=== PATIENT | male | born 1965 | race Caucasian/White ===

== ENCOUNTER 2016-10-20 06:12 | Emergency (ER) | payer OTHER ==
[~2016-10-20] VITALS: Ht 167.6 cm; Wt 95.3 kg
[~2016-10-20 06:12] MED LIST: ALBUTEROL0.09 MG/A1 INH; ANTIVERT/2525 MG PO; BACTRIM DS 8001 TA1 PO; BIAXIN FILMTAB500 MG PO; CLARITIN10 MG PO; COMBIVENT1 ARO IH; DOXYCYCLINE MO100 M1 PO; DUONEB 3 MG/3 ML3 M1 NEB; HUMALOG MIX SC; LEVAQUIN500 M1 PO; LEVAQUIN750 M1 PO; LEVOFLOXACIN500 MG PO; MEDROL DOSEPAK4 MG PO; METFORMIN1000 MG PO; MOTRIN800 MG PO; MUCINEX ER600 MG PO; Meclizine25 MG PO; NOVOLOG 70/30 M10 ML SC; PHENERGAN W/ DE30 ML PO; PREDNICOT10 MG PO; PREDNICOT20 MG PO; PREDNISONE10 MG PO; SYMBICORT1 AE1 INH; THEOPHYLLINE200 M3 PO; THEOPHYLLINE300 M2 PO; VICODIN 5/500 505 MG PO; ZANTAC150 MG PO; ZITHROMAX Z PA250 MG PO; ZYRTEC10 MG PO; Zestril,Prinivil5 MG PO
[2016-10-20 06:55] LABS: BASO % 0.1 % (0.0-1.0); EOS # 0.5 10*3/uL (0.0-0.4); HEMATOCRIT 44.2 % (42.0-52.0); HEMOGLOBIN 14.9 g/dl (14.0-18.0); LYMPH # 1.5 10*3/uL (1.3-4.4); LYMPH % 17.8 % (27.0-41.0); MEAN CELL VOLUME 83.6 fl (80.0-94.0); MEAN CORPUSCULAR HGB 28.2 pg (27.0-31.0); MEAN CORPUSCULAR HGB CONC 33.7 g/dl (33.0-37.0); MONO # 0.6 10*3/uL (0.1-1.0); MONO % 7.1 % (3.0-9.0); NEUT # 5.9 10*3/uL (2.3-7.9); NEUT % 68.8 % (47.0-73.0); PLATELET COUNT AUTOMATED 207 10*3/uL (130-400); RED BLOOD COUNT 5.29 10*6/uL (4.50-5.90); RED CELL DISTRI WIDTH 12.9 % (0-14.5); WHITE BLOOD COUNT 8.6 10*3/uL (4.8-10.8)
[2016-10-20 07:00] LABS: BILIRUBIN NEGATIVE (NEGATIVE); BLOOD TRACE-INTACT (NEGATIVE); CLARITY CLEAR (CLEAR); COLOR YELLOW (YELLOW); GLUCOSE 3+ (NEGATIVE); KETONE NEGATIVE (NEGATIVE); LEUKO ESTERASE NEGATIVE (NEGATIVE); NITRITE NEGATIVE (NEGATIVE); PROTEIN 1+ (NEGATIVE); UROBILINOGEN 0.2 E.U./dl (0.2-1.0)
[2016-10-20 07:02] LABS: URINE AMPHETAMINES < 1000 (1000ng/ml); URINE BARBITURATES < 200 (200ng/ml); URINE COCAINE < 300 (300ng/ml)
[2016-10-20 07:10] LABS: BACTERIA TRACE; URINE REFLEX COMMENT NO (NO)
[2016-10-20 07:14] LABS: ALBUMIN 3.4 gm/dl (3.1-4.5); ALKALINE PHOSPHATASE 79 U/L (45-117); BILIRUBIN, TOTAL 0.3 mg/dl (0.2-1.0); BUN 24 mg/dl (7-24); CARBON DIOXIDE 26 mmol/L (21-32); CHLORIDE 99 mmol/L (98-107); CKMB 0.7 ng/ml (0.5-3.6); CPK 57 U/L (39-308); EST GLOM FILT AFRICAN AMERICAN > 60 ml/min; GLUCOSE 415 mg/dL (65-99); MAGNESIUM 2.2 mg/dL (1.5-2.1); POTASSIUM 4.4 mmol/L (3.5-5.1); SGOT/AST 11 IU/L (3-35); SGPT/ALT 32 U/L (12-78); SODIUM 136 mmol/L (136-145); TOTAL PROTEIN 7.5 gm/dL (6.4-8.2)
[2016-10-20 07:18] LABS: TROPONIN I < 0.015 ng/ml (<0.045)
[2016-10-20] MEDS ORDERED: VERTICALM25 MG PO (12:16)
== END 2016-10-20 13:26 | disposition home or self-care (01) ==
LOC: ED 06:12
PROVIDERS: Family Medicine Sports Medicine
DX: H83.09 Labyrinthitis, unspecified ear (principal); J45.909 Unspecified asthma, uncomplicated; E11.9 Type 2 diabetes mellitus without complications; I10 Essential (primary) hypertension; Z88.0 Allergy status to penicillin; Z79.899 Other long term (current) drug therapy

== ENCOUNTER 2017-02-03 11:02 | Emergency (ER) | payer OTHER ==
[~2017-02-03 11:02] MED LIST changes: +VERTICALM25 MG PO
[2017-02-03] MEDS ORDERED: IMITREX100 MG PO (11:09)
[2017-02-03 11:48] LABS: BASO % 0.1 % (0.0-1.0); EOS # 0.3 10*3/uL (0.0-0.4); EOS % 3.3 % (1.0-4.0); HEMATOCRIT 42.5 % (42.0-52.0); LYMPH # 1.3 10*3/uL (1.3-4.4); LYMPH % 15.3 % (27.0-41.0); MEAN CELL VOLUME 85.9 fl (80.0-94.0); MEAN CORPUSCULAR HGB 28.3 pg (27.0-31.0); MEAN CORPUSCULAR HGB CONC 32.9 g/dl (33.0-37.0); MEAN PLATELET VOLUME 9.8 fl (9.6-12.3); MONO # 0.5 10*3/uL (0.1-1.0); NEUT # 6.4 10*3/uL (2.3-7.9); NEUT % 74.9 % (47.0-73.0); PLATELET COUNT AUTOMATED 211 10*3/uL (130-400); RED BLOOD COUNT 4.95 10*6/uL (4.50-5.90); RED CELL DISTRI WIDTH 13.2 % (0-14.5); WHITE BLOOD COUNT 8.5 10*3/uL (4.8-10.8)
[2017-02-03 12:06] LABS: BUN 26 mg/dl (7-24); CARBON DIOXIDE 26 mmol/L (21-32); CHLORIDE 103 mmol/L (98-107); EST GLOM FILT AFRICAN AMERICAN > 60 ml/min; GLUCOSE 180 mg/dL (65-99); POTASSIUM 4.7 mmol/L (3.5-5.1); SODIUM 137 mmol/L (136-145)
[2017-02-03 12:10] LABS: TROPONIN I < 0.015 ng/ml (<0.045)
[2017-02-03] MEDS ORDERED: NAPROSYN500 MG PO (12:54)
[2017-02-03] MEDS ORDERED: SKELAXIN800 M1 PO (12:55)
== END 2017-02-03 13:42 | disposition home or self-care (01) ==
LOC: ED 11:02
PROVIDERS: Emergency Medicine
DX: S16.1XXA Strain of muscle, fascia and tendon at neck level, initial encounter (principal); G44.209 Tension-type headache, unspecified, not intractable; I10 Essential (primary) hypertension; E11.9 Type 2 diabetes mellitus without complications; Z88.0 Allergy status to penicillin; Z79.899 Other long term (current) drug therapy; X58.XXXA Exposure to other specified factors, initial encounter; Y93.9 Activity, unspecified; Y92.9 Unspecified place or not applicable; Y99.9 Unspecified external cause status

== ENCOUNTER 2017-03-27 11:29 | Inpatient (IN) | payer OTHER ==
[~2017-03-27] VITALS: Ht 167.6 cm; Wt 93.4 kg
--- NOTE | ~2017-03-27 | PR ---
[place], [place] PROGRESS NOTE NAME: ROMMEL BENNETT UNIT #: [id number] ROOM: 404 DOCTOR: LUZ MARIA HYDE MD BIRTHDATE: [birth year] DOS: 03/28/2017 PULMONARY FOLLOWUP SUBJECTIVE: The patient has been noted comfortable at this time, resting on the bed. The coughing has been noted minimal, shortness of breath has been improving. The patient has been ambulating by himself. OBJECTIVE: VITAL SIGNS: Show normal temperature, respiratory rate 20, heart rate 87, blood pressure 100/78. The pulse oxygen saturation of the patient recorded as 97% on room air. HEENT: Showed no new change. NECK: Supple. CARDIOVASCULAR: S1, S2 audible. LUNGS: Noted without any wheezing or crackles. ABDOMEN: Soft, nontender. LABORATORY DATA: BMP today shows BUN 26, creatinine was normal. Glucose was noted at 281. Chest x-ray this morning for the patient shows improvement in infiltration of the left lingula and the lower lobe. IMPRESSION: 1. The patient with resolving acute bacterial pneumonia with gram-positive organism, nonaspiration. 2. Resolving acute exacerbation of bronchial asthma. 3. Improvement in the hyperglycemia was also noted with reduction of the corticosteroids. PLAN OF TREATMENT: From the pulmonary standpoint, the patient could be considered for home discharge on oral medications. Tapering dose of prednisone and antibiotic would be used. He was advised to use respiratory medication for bronchial asthma. An outpatient followup to be established in my office. [place], [place] PROGRESS NOTE NAME: ROMMEL BENNETT UNIT #: [id number] ROOM: 404 DOCTOR: LUZ MARIA HYDE MD BIRTHDATE: [birth year] LUZ MARIA KEN MD CM:RAFAEL [id number] 1252 LUZ MARIA ALEGRIA MD 03/30/17 1252 interface
--- NOTE | ~2017-03-27 | CON ---
[place], [place] REPORT OF CONSULTATION NAME: ROMMEL BENNETT UNIT #: [id number] ROOM: 404 DOCTOR: SUELLEN ALEGRIA MDLUZ MARIA BIRTHDATE: [birth year] DOS: 03/28/2017 PULMONARY CONSULTATION CONSULTATION REQUESTED BY: Hospitalist services. REASON FOR CONSULTATION: Assess the patient for acute pneumonia and exacerbation of bronchial asthma. HISTORY OF PRESENT ILLNESS: A 51-year-old white male who has been known with past history of bronchial asthma, longstanding presented to the hospital. The patient developed symptoms of increased coughing recently. The patient's cough has been noted progressive worsening associated with significant shortness breath. He presented to the Emergency Room yesterday where he has been assessed and currently admitted to the hospital for further medical management. The chest x-ray reported with acute lingular infiltration. He does have symptoms of cough, which has been noted initially productive, currently no sputum expectoration. Wheezing, patient has been noted severe previously and currently improving. He denies symptoms of hemoptysis. REVIEW OF SYSTEMS: CONSTITUTIONAL: He complains of fatigue and tiredness with some chills, but there was no fever. EYES: Denies any burning, redness, tenderness or discharge. THROAT: Denies sore throat, hoarseness, otalgia, postnasal drainage or epistaxis. CARDIOVASCULAR: Denies anginal pain, edema or pain of the lower extremities or palpitations. GASTROINTESTINAL: Denies abnormal weight loss, dysphagia, nausea, vomiting, diarrhea, abdominal pain, hematemesis, melena, or hematochezia. GENITOURINARY: Denies dysuria, suprapubic pain, hematuria. SKIN: Denies lesions or rashes. MUSCULOSKELETAL: Denies acute joint pain, redness, or tenderness. CENTRAL NERVOUS SYSTEM: Denies dizziness, headache, diplopia, syncopal episodes or seizures. Remaining systems were reviewed and they were noted all negative. PAST MEDICAL HISTORY: 1. Known with history of bronchial asthma, severity was unknown. 2. History of past recurrent bronchitis. 3. History of type 2 diabetes mellitus. 4. Essential hypertension. 5. Obesity. SOCIAL HISTORY: The patient is single, does not have any children. Denies history of alcohol use, illicit drug use or any occupation related pulmonary exposure. PAST SURGICAL HISTORY: Noted none. [place], [place] REPORT OF CONSULTATION NAME: ROMMEL BENNETT UNIT #: [id number] ROOM: 404 DOCTOR: SUELLEN ALEGRIA MD,LUZ MARIA BIRTHDATE: [birth year] FAMILY HISTORY: Father at the age of 80 years of complications of acute myocardial infarction. Mother at the age of 8080 years old from complication related diabetes mellitus. HOME MEDICATIONS: Use of albuterol sulfate with nebulizer. The patient stated that he could not use the inhalers as they have been expensive that he could not afford those. DRUG ALLERGY HISTORY: Noted as allergy to PENICILLINS. PHYSICAL EXAMINATION: GENERAL: A 51-year-old male who has been currently noted awake and alert without any distress. Height of 5 feet 6 inches, weight of 206 pounds, BMI 33.2. VITAL SIGNS: The patient shows a normal temperature, respiratory rate was recorded as 17-20, heart rate of 90-92, blood pressure 122/50-153/80. The pulse oxygen saturation of the patient recorded as 95% on room air. HEENT: Examination shows moderate obesity with decreased posterior pharyngeal space. The neck was supple. Head was atraumatic. Eyes nonicterus. CARDIOVASCULAR SYSTEM: S1, S2 audible. LUNGS: Noted moderate reduction in breath sounds with diffuse expiratory wheezing. There were no crackles. ABDOMEN: Soft, obese, nontender. EXTREMITIES: Show no edema, clubbing, cyanosis. CENTRAL NERVOUS SYSTEM: Cranial nerves 2-12 intact. No focal deficit. MUSCULOSKELETAL: No deformities. SKIN: Showed no lesions or rashes. LABORATORY DATA: On admission, CBC that were done yesterday, WBC count 11,000. Remaining CBC was normal. CMP of 03/27, glucose 133, BUN and creatinine was normal. Remaining CMP was normal. Troponin yesterday and this morning all noted normal. CBC this morning was noted essentially grossly normal. BMP this morning showed BUN 25, creatinine 1.48, glucose ____. PT/INR was noted as normal. PTT noted as normal. Lactic acid yesterday on admission was noted as normal. IMPRESSION: 1. The patient who has been currently admitted to the hospital noted with acute exacerbation of bronchial asthma. The chest x-ray that was done shows small area of infiltration or atelectasis combination in the left lingula as an acute finding as compared with the previous chest x-ray. Possibility of pneumonia versus atelectasis would be considered. 2. Uncontrolled hyperglycemia with history of type 2 diabetes mellitus, currently use of high dose corticosteroids. 3. Lack of affect to use medication for the long-term management of bronchial asthma because of financial difficulty. PLAN OF MANAGEMENT: The patient's steroid dose will be decreased since the patient's wheezing and the respiratory symptoms have been improving. Solu-Medrol will be changed to 40 mg b.i.d. Repeat another chest x-ray in the [place], [place] REPORT OF CONSULTATION NAME: ROMMEL BENNETT UNIT #: [id number] ROOM: 404 DOCTOR: SUELLEN ALEGRIA MD,LUZ MARIA BIRTHDATE: [birth year] morning for reassessment of current possibility of pneumonia. If it is to be considered gram-positive organism, streptococcal pneumonia versus atelectasis secondary to mucus impaction. Monitor respiratory status. Continue medical management of hyperglycemia. Continue bronchodilator to help mobilize secretions and medical management of acute exacerbation of bronchial asthma. Addition of changes in treatment done based on progression of the illness. Thank you for allowing me to participate in the care of this patient. LUZ MARIA KEN MD CM:CONSTR:REPORT OF CONSULTATION 1220 03/29/17 0438 interface
[~2017-03-27 11:29] MED LIST changes: +IMITREX100 MG PO; +NAPROSYN500 MG PO; +SKELAXIN800 M1 PO; +ZESTORETIC 20-1 EACH PO; -Zestril,Prinivil5 MG PO
[2017-03-27 11:38] VITALS: BP 145/79
[2017-03-27 12:03] LABS: BASO % 0.2 % (0.0-1.0); EOS # 0.4 10*3/uL (0.0-0.4); EOS % 3.3 % (1.0-4.0); HEMATOCRIT 42.4 % (42.0-52.0); LYMPH # 1.2 10*3/uL (1.3-4.4); LYMPH % 11.2 % (27.0-41.0); MEAN CELL VOLUME 85.7 fl (80.0-94.0); MEAN CORPUSCULAR HGB 28.3 pg (27.0-31.0); MEAN PLATELET VOLUME 9.9 fl (9.6-12.3); MONO # 0.9 10*3/uL (0.1-1.0); MONO % 8.2 % (3.0-9.0); NEUT # 8.5 10*3/uL (2.3-7.9); NEUT % 76.6 % (47.0-73.0); PLATELET COUNT AUTOMATED 228 10*3/uL (130-400); RED BLOOD COUNT 4.95 10*6/uL (4.50-5.90); RED CELL DISTRI WIDTH 12.8 % (0-14.5); WHITE BLOOD COUNT 11.1 10*3/uL (4.8-10.8)
[2017-03-27 12:23] LABS: ALBUMIN 3.5 gm/dl (3.1-4.5); ALKALINE PHOSPHATASE 77 U/L (45-117); BUN 17 mg/dl (7-24); CHLORIDE 105 mmol/L (98-107); CREATININE 1.26 mg/dL (0.70-1.30); MAGNESIUM 2.1 mg/dL (1.5-2.1); POTASSIUM 4.2 mmol/L (3.5-5.1); SGOT/AST 15 IU/L (3-35); SGPT/ALT 25 U/L (12-78); SODIUM 138 mmol/L (136-145); TOTAL PROTEIN 7.6 gm/dL (6.4-8.2)
[2017-03-27 12:27] LABS: TROPONIN I < 0.015 ng/ml (<0.045)
--- NOTE | 2017-03-27 13:14 | NUR ---
PT AWARE OF ADMITTANCE AND WHY.
--- NOTE | 2017-03-27 14:15 | NUR ---
A 51, admitted to , under the services of ALTAF Schmitt DO with a diagnosis of ELEVATED BP,LINGULAR PNEUMONIA,HYPERGLYCEMIA,SEPSIS. Chief complaint is PROD COUGH. Patient arrived via stretcher from ER. Monitor applied. Initial assessment completed. Vital signs taken and recorded. ALTAF SCHMITT DO notified of admission to the unit. Orders received. See assessment for past medical history, medications and allergies. Patient and/or family oriented to unit. [address] visitation policy reviewed. Clothing/patient valuable form completed. NIKO WAGNER
[2017-03-27 14:16] VITALS: BP 124/74
[2017-03-27 14:19] VITALS: BP 114/74
--- NOTE | 2017-03-27 14:38 | NUR ---
DR KEN CALLED RE: CONSULT. UPDATED ON PT STATUS.
--- NOTE | 2017-03-27 15:08 | NUR ---
JEFERSON CALLED, MEDS VERIFIED. REYNOLD CHAVES NP NOTIFIED.
[2017-03-27 16:00] VITALS: BP 167/87
[2017-03-27 20:00] VITALS: BP 143/78
[2017-03-28] VITALS: BP 153/80
[2017-03-28 04:00] VITALS: BP 153/80
[2017-03-28 07:21] LABS: BASO % 0.1 % (0.0-1.0); HEMATOCRIT 38.8 % (42.0-52.0); HEMOGLOBIN 12.8 g/dl (14.0-18.0); LYMPH # 0.6 10*3/uL (1.3-4.4); MEAN CELL VOLUME 84.9 fl (80.0-94.0); MEAN PLATELET VOLUME 10.1 fl (9.6-12.3); MONO # 0.4 10*3/uL (0.1-1.0); NEUT # 8.7 10*3/uL (2.3-7.9); NEUT % 89.6 % (47.0-73.0); PLATELET COUNT AUTOMATED 206 10*3/uL (130-400); RED BLOOD COUNT 4.57 10*6/uL (4.50-5.90); RED CELL DISTRI WIDTH 12.6 % (0-14.5); WHITE BLOOD COUNT 9.7 10*3/uL (4.8-10.8)
[2017-03-28 07:28] LABS: ALBUMIN 2.9 gm/dl (3.1-4.5); ALKALINE PHOSPHATASE 74 U/L (45-117); BUN 25 mg/dl (7-24); CHLORIDE 101 mmol/L (98-107); CREATININE 1.48 mg/dL (0.70-1.30); FREE T4 0.85 ng/dl (0.76-1.46); PHOSPHOROUS 2.8 mg/dL (2.5-4.9); POTASSIUM 4.6 mmol/L (3.5-5.1); SGOT/AST 11 IU/L (3-35); SGPT/ALT 22 U/L (12-78); SODIUM 136 mmol/L (136-145)
--- NOTE | 2017-03-28 07:30 | NUR ---
ASSUMED CARE OF PT AT THIS TIME, PT STATES NO CONCERNS OR COMPLANITS
[2017-03-28 07:33] LABS: THYROID STIM HORMONE (HS) 0.894 uIU/ml (0.358-4.75)
[2017-03-28 08:00] VITALS: BP 122/56
[2017-03-28 08:24] LABS: VITAMIN D, 25-HYDROXY 24.5 ng/mL (30-100)
[2017-03-28 12:00] VITALS: BP 111/52
[2017-03-28 16:00] VITALS: BP 152/75
[2017-03-28 20:00] VITALS: BP 147/75
--- NOTE | 2017-03-28 23:53 | NUR ---
CHART CHECK COMPLETE
[2017-03-29] VITALS: BP 149/79
[2017-03-29 07:21] LABS: BUN 26 mg/dl (7-24); CHLORIDE 103 mmol/L (98-107); POTASSIUM 4.4 mmol/L (3.5-5.1); SODIUM 138 mmol/L (136-145)
[2017-03-29 08:00] VITALS: BP 154/80
[2017-03-29 12:00] VITALS: BP 109/78
[2017-03-29] MEDS ORDERED: LEVAQUIN750 M1 PO (13:18)
[2017-03-29] MEDS ORDERED: PREDNISONE10 MG PO (13:18)
--- NOTE | 2017-03-29 15:07 | NUR ---
DISCHARGE INSTRUCTIONS REVIEWED. [employer] SUPERVISOR DISCONTINUED. WILL CONTINUE TO MONITOR. [facility] IS ONE THE WAY.
--- NOTE | 2017-03-29 15:19 | NUR ---
Discharge instructions reviewed with patient/family. Patient receptive and verbalizes understanding. Follow-up care arranged. Written instructions given to patient/family. MARC CHANEY
== END 2017-03-29 15:19 | disposition home or self-care (01) | DRG 871 ==
LOC: ED 11:29 → EDHOLD 13:05 → 4E 13:38
PROVIDERS: Nurse Practitioner Family; Registered Nurse; Student in an Organized Health Care Education/Training Program; ADMIT Emergency Medicine
DX: A41.9 Sepsis, unspecified organism (principal); J16.8 Pneumonia due to other specified infectious organisms; J45.901 Unspecified asthma with (acute) exacerbation; E11.65 Type 2 diabetes mellitus with hyperglycemia; E55.9 Vitamin D deficiency, unspecified; E66.9 Obesity, unspecified; I10 Essential (primary) hypertension; Z88.0 Allergy status to penicillin; Z79.4 Long term (current) use of insulin; Z79.84 Long term (current) use of oral hypoglycemic drugs; Z79.899 Other long term (current) drug therapy; Z83.3 Family history of diabetes mellitus; Z82.49 Family history of ischemic heart disease and other diseases of the circulatory system; Z80.9 Family history of malignant neoplasm, unspecified; Z68.33 Body mass index [BMI] 33.0-33.9, adult

== ENCOUNTER 2017-03-31 05:46 | Inpatient (IN) | payer OTHER ==
[~2017-03-31] VITALS: Ht 167.6 cm; Wt 93.5 kg
[2017-03-31] VITALS (10 sets, daily range): BP systolic 117–175; BP diastolic 74–97
--- NOTE | ~2017-03-31 | PR ---
[place], [place] PROGRESS NOTE NAME: ROMMEL BENNETT UNIT #: [id number] ROOM: 530 DOCTOR: SUELLEN ALEGRIA MD,LUZ MARIA BIRTHDATE: [birth year] DOS: 04/03/2017 ADDENDUM The patient has been still complaining of some cough with sputum expectoration intermittently, diffuse ____, which was offered the patient couple of days ago. Shortness of breath and wheezing for the patient has been improving. There was no chest pain. The patient was independently seen and examined. Physical examination performed, history was confirmed. The labs were reviewed. The note done by the medical insurance collector was approved. The patient has been showing improvement in the respiratory status at this time with the improvement in the acute exacerbation of bronchial asthma, acute bronchitis, could be considered for home discharge, on oral Zithromax, Mucinex, tapering prednisone and to continue his previous other medication for bronchial asthma. The patient could reestablish an appointment in the office to consider for outpatient bronchoscopy if necessary. LUZ MARIA KEN MD CM:PNTRANS 1030 [id number] LUZ MARIA ALEGRIA MD 04/04/17 0714 interface
--- NOTE | ~2017-03-31 | PR ---
[place], [place] PROGRESS NOTE NAME: ROMMEL BENNETT UNIT #: [id number] ROOM: 530 DOCTOR: LATRICIA NELSON DO BIRTHDATE: [birth year] DOS: 04/01/2017 SUBJECTIVE: The patient denies of any complaints, says that he feels slightly fatigued. No fever, chills, nausea, vomiting, shortness of breath or chest pain at this time. OBJECTIVE: VITAL SIGNS: Temperature 98.3, pulse of 98, respiratory rate of 18, blood pressure of 133/59. HEENT: Shows no changes. NECK: Supple. CARDIOVASCULAR: S1, S2 audible. LUNGS: The patient was noted without any crackles. Mild expiratory wheeze bilaterally. ABDOMEN: Soft, nontender. LABORATORY DATA: Complete blood count: White cell count of 12.1, hemoglobin of 11.7, platelet count of 210. BMP today: BUN 23, creatinine 1.25, glucose of 323. IMPRESSION: 1. The patient has been noted to have recurrent bronchial asthma exacerbation with acute bronchitis due to lack of his usual medications for bronchial asthma. 2. Mild musculoskeletal chest pain. 3. Mild uncontrolled hypertension. PLAN OF TREATMENT: The patient did not want to get bronchoscopy done. The patient is doing well overall. We will do Solu-Medrol once a day. Continue steroids and bronchodilators and supportive care. LATRICIA NELSON DO [place], [place] PROGRESS NOTE NAME: ROMMEL BENNETT UNIT #: [id number] ROOM: 530 DOCTOR: LATRICIA NELSON DO BIRTHDATE: [birth year] LUZ MARIA KEN MD CM:RAFAEL [id number] LATRICIA NELSON DO 04/01/17 1223 interface
--- NOTE | ~2017-03-31 | PR ---
[place], [place] PROGRESS NOTE NAME: [id number] UNIT #: [id number] ROOM: 530 DOCTOR: SUELLEN ALEGRIA MD,LUZ MARIA BIRTHDATE: [birth year] DOS: 04/01/2017 SUBJECTIVE: The patient was independently seen and examined with [id number] encounter. The labs were reviewed. Physical examination was performed. The note which was done by the medical records administrator, was approved. The decision management were personally made for today's visit. The patient has reported reduction in the respiratory symptoms. At this time, continue with current medical management. OBJECTIVE: The vital signs essentially were noted normal except for mild elevation in the blood pressure. Blood glucose was severely elevated at 507 yesterday with bedside glucose monitoring. LABORATORY DATA: CBC today was noted with WBC count 12.1, hemoglobin 11.7, hematocrit 35.5, platelet counts were normal. PT/PTT were noted normal today. CMP this morning, glucose 320, BUN and creatinine was normal. IMPRESSION: Acute exacerbation of bronchial asthma, acute tracheobronchitis, steroid-induced hyperglycemia and other nonspecific complaints. The patient seems to be improving. Musculoskeletal chest pain. The chest has been already resolved. PLAN OF TREATMENT: The patient will be continued on the bronchodilators and oxygen supplementation. Dose of corticosteroids would be decreased. The patient is getting broad spectrum intravenous antibiotics, which should be discontinued. The patient should be started on simpler antibiotics such as Rocephin or Zithromax. LUZ MARIA KEN MD CM:PNTRANS 1155 1233 LUZ MARIA ALEGRIA MD 04/01/17 1232 interface
--- NOTE | ~2017-03-31 | EKG ---
[place], [place] ELECTROCARDIOGRAM REPORT NAME: ROMMEL BENNETT UNIT #: [id number] ROOM: 530 DOCTOR: SUELLEN ALEGRIA MD,LUZ MARIA BIRTHDATE: [birth year] DOS: 03/31/2017 The electrocardiogram was performed on 03/31/2017 at 6:19 a.m. The rhythm was noted with normal sinus rhythm with a heart rate of 94 beats per minute. Right bundle branch block was also noted without any changes of ischemia. LUZ MARIA KEN MD CM:EKGRPT:ELECTROCARDIOGRAM REPORT 1212 1237 LUZ MARIA ALEGRIA MD
--- NOTE | ~2017-03-31 | PR ---
[place], [place] PROGRESS NOTE NAME: ROMMEL BENNETT UNIT #: [id number] ROOM: 530 DOCTOR: LATRICIA NELSON DO BIRTHDATE: [birth year] DOS: 04/02/2017 SUBJECTIVE: The patient was seen and evaluated today with Dr. Ken. The patient is alert, awake, oriented and responsive. The patient denies any nausea, vomiting, diarrhea, lightheadedness, dizziness, or chest pain. The patient states that his respiratory symptoms have improved. OBJECTIVE: VITAL SIGNS: Temperature normal, pulse rate 93, respiratory rate 20, blood pressure 138/74, pulse ox is 99% saturation at room air. HEENT: Shows no changes. NECK: Supple. CARDIOVASCULAR: S1, S2 audible. LUNGS: The patient was noted without any crackles, mild expiratory wheeze bilaterally, which has improved from yesterday. LABORATORY DATA: CBC today, white cell count of 11.6, hemoglobin of 11.1, platelet count of 190, BUN of 18, creatinine of 0.7. Vancomycin trough of 4.1. Serology is pending. Blood culture is pending to date. ASSESSMENT: 1. The patient has been noted to have recurrent bronchial asthma exacerbation with acute bronchitis due to lack of his usual medication for bronchial asthma. 2. Mild musculoskeletal chest pain. 3. Mild uncontrolled hypertension. PLAN: 1. Plan for hospital stay for 1 more day for treatment with IV antibiotics. 2. Continue Zithromax IV. 3. Discontinue IV vancomycin and IV meropenem. 4. Continue steroids, bronchodilators, and supportive care. LATRICIA NELSON DO [place], [place] PROGRESS NOTE NAME: ROMMEL BENNETT UNIT #: [id number] ROOM: 530 DOCTOR: LATRICIA NELSON DO BIRTHDATE: [birth year] LUZ MARIA KEN MD CM:RAFAEL [id number] LATRICIA NELSON DO 04/02/17 1236 interface
--- NOTE | ~2017-03-31 | PR ---
[place], [place] PROGRESS NOTE NAME: [id number] UN[facility] #: [id number] ROOM: 530 DOCTOR: SUELLEN ALEGRIA MD,LUZ MARIA BIRTHDATE: [birth year] DOS: 04/02/2017 The patient was personally seen with a [id number] encounter today. The physical examination was performed. The history was confirmed. The labs were personally reviewed. The note which was done by the medical physics teacher was approved for any changes in the medical management personally made for today's visit. The patient has been showing reduction/improvement in the respiratory symptoms progressively. Shortness of breath, cough and the dizziness has been resolving. LABORATORY DATA: Blood culture of the patient previously noted as no bacterial growth. CBC today was noted with mild leukocytosis. WBC count 11.6 with anemia. BMP was noted with mild elevation of glucose as 186 with a normal BUN and creatinine. IMPRESSION: The patient responded to treatment with progressive reduction and improvement in the medical management of acute exacerbation of bronchial asthma with acute tracheobronchitis. PLAN OF TREATMENT: The patient's broad spectrum antibiotics will be discontinued and he will be started on IV Zithromax. Solu-Medrol will be continued once a day. Blood glucose has been noted better controlled. Potential discharge would be considered for in the morning. LUZ MARIA KEN MD CM:PNTRANS [phone] LUZ MARIA ALEGRIA MD 04/03/17 07 interface
--- NOTE | ~2017-03-31 | PR ---
[place], [place] PROGRESS NOTE NAME: ROMMEL BENNETT UNIT #: [id number] ROOM: 530 DOCTOR: LATRICIA NELSON DO BIRTHDATE: [birth year] DOS: 04/03/2017 SUBJECTIVE: The patient was seen and evaluated today with Dr. Ken. The patient is alert, awake, responsive. The patient denies any nausea, vomiting, diarrhea, shortness of breath, fever, chills or chest pain. OBJECTIVE: VITAL SIGNS: Temperature 97.8, pulse 99, respirations 20, blood pressure of 156/90. SKIN: Shows no changes. NECK: Supple. CARDIOVASCULAR: S1, S2 audible. LUNGS: The patient was noted without any crackles. Mild expiratory wheeze bilaterally, improved from yesterday. EXTREMITIES: Did not show any edema. LABORATORY DATA: White cell count 13, hemoglobin 11.9, platelet 229. Chemistry: Sodium 141, BUN 17, creatinine 1.07. ASSESSMENT: 1. The patient has been noted to have recurrent bronchial asthma exacerbation with acute bronchitis due to lack of his usual medications for bronchial asthma. 2. Musculoskeletal chest pain, resolved. 3. Mild uncontrolled hypertension. PLAN:. The patient can be discharged home on Zithromax 500 mg p.o. x 5 days, Mucinex and prednisone taper. LATRICIA NELSON DO LUZ MARIA KEN MD CM:PNTRANS 1315 1344 LATRICIA NELSON DO 04/03/17 1636 interface
--- NOTE | ~2017-03-31 | CON ---
[place], [place] REPORT OF CONSULTATION NAME: [facility]EL BENNETT [facility] [id number] UNIT #: [id number] ROOM: 530 DOCTOR: SUELLEN ALEGRIA MDLUZ MARIA BIRTHDATE: [birth year] DOS: 03/31/2017 REASON FOR CONSULTATION: Assess the patient with chest pain and cough. HISTORY OF PRESENT ILLNESS: A 51-year-old white male patient who has been known to me, recently admitted to the hospital, treated for acute left lower lobe and lingular pneumonia. The patient was improving radiologically and clinically prior to discharge. He has done well as yesterday. The patient was noted with symptoms of headache as well as pain described in the retrosternal area without radiation. The patient reported symptoms of cough, which has been noted somewhat increased and noted nonproductive. He came into the hospital. He has been assessed and admitted to the hospital for further medical management. The chest pain seemed to be absent at this time of assessment. The patient's cough has been noted moderate without any sputum expectoration. The wheezing has been resolving. Shortness of breath has been noted to be decreased. REVIEW OF SYSTEMS: CONSTITUTIONAL: Complain of fatigue and tiredness and fever. There was no fever or chills. EYES: Denies any burning, redness, or tenderness. EARS, NOSE, THROAT SYMPTOMS: No sore throat, hoarseness, otalgia, postnasal drainage. CARDIOVASCULAR: Denies any pain of the angina. The patient denies any symptoms of palpitations or edema of the extremities. GASTROINTESTINAL: Dysphagia, nausea, vomiting, diarrhea, abdominal pain, hematemesis, melena, hematochezia. SKIN: Denies lesions or rashes. MUSCULOSKELETAL: Denies acute joint pain, redness, or tenderness. CENTRAL NERVOUS SYSTEM: Denies dizziness, headache, diplopia or syncopal episodes. Remaining systems were reviewed with the patient, they were noted all negative. PAST MEDICAL HISTORY: 1. The patient's recent hospitalization, the patient discharged on the 3rd of this month for the medical management of acute exacerbation of bronchial asthma and pneumonia. 2. History of uncomplicated, at least moderate persistent bronchial asthma. 3. History of recurrent bronchitis. 4. Type 2 diabetes mellitus. 5. Essential hypertension. 6. Obesity. 7. Noncompliance with the medication use because of financial issues and lack of insurance coverage for certain medications for the bronchial asthma. SOCIAL HISTORY: The patient is single, does not have any children. Denies history of alcohol use, illicit drug use or any tobacco use. PAST SURGICAL HISTORY: Noted essentially with past therapeutic bronchoscopy in 2006. [place], [place] REPORT OF CONSULTATION NAME: ROMMEL BENNETT UNIT #: [id number] ROOM: [facility] DOCTOR: SUELLEN ALEGRIA MD,LUZ MARIA BIRTHDATE: [birth year] FAMILY HISTORY: The patient's father at age 8080 years old with complications of myocardial infarction. Mother at 80 years old with complications related to diabetes mellitus. HOME MEDICATIONS: 1. Recent prescription of tapering dose of prednisone and Levaquin. 2. Zestoretic 20/12.5 mg one p.o. daily. 3. Metformin 1000 mg p.o. b.i.d. 4. Theophylline 300 mg p.o. daily. 5. 70/30 mixture of insulin, 45 units subcutaneously b.i.d. DRUG ALLERGY HISTORY: The patient noted as allergy to PENICILLINS. PHYSICAL EXAMINATION: GENERAL: A 51-year-old male who has been currently noted awake and alert without any distress at time of the assessment. Height noted 5 feet 6 inches, weight 206 pounds, BMI 33.2. VITAL SIGNS: Normal temperature, respiratory rate 20, heart rate 95, blood pressure 130/77 - 175/97. The pulse oxygen saturation on room air was 92% saturation. HEENT: Moderate obesity. Head was atraumatic. Eyes nonicterus. NECK: Supple. CARDIOVASCULAR: S1, S2 audible. LUNGS: The patient was noted without any crackles. Expiratory wheezing present, mild to moderately bilaterally. ABDOMEN: Noted with soft, nontender, mild to moderate obesity. Bowel sounds present. EXTREMITIES: Show no edema, clubbing, cyanosis. CENTRAL NERVOUS SYSTEM: Cranial nerves II-XII and developed acute tachycardia. No focal deficits. MUSCULOSKELETAL: No deformities. SKIN: No lesions or rashes. LABORATORY DATA: The patient's CBC this morning was noted normal. CMP of the patient this morning, glucose 208. BUN and creatinine were normal. Remaining CMP was normal. Arterial blood gas of the patient that was done this morning shows pH of 7.43, pCO2 of 37, pO2 of 75 on room air. Lactic acid was 1.1. The troponin was normal. The chest x-ray of the patient that was done on this admission was reviewed and shows currently resolving infiltration of the left lower lobe and lingula without any acute abnormalities. IMPRESSION: 1. The patient who has been noted with recurrent exacerbation of bronchial asthma with acute bronchitis lack of her usual medication for bronchial asthma as well. 2. The patient with musculoskeletal chest pain. 3. Mildly uncontrolled hypertension as well. PLAN OF TREATMENT: Bronchoscopy was suggested for further assessment of current [place], [place] REPORT OF CONSULTATION NAME: ROMMEL BENNETT UNIT #: [id number] ROOM: [facility] DOCTOR: SUELLEN ALEGRIA MD,LUZ MARIA BIRTHDATE: [birth year] nonproductive cough. The patient will benefit from other continued medical management. The patient will be continued on current dose of corticosteroids and management of diabetes mellitus. The risks and benefits of procedure were discussed with the patient for bronchoscopy and he is agreeable for the procedure. Procedure is scheduled to be done in the morning. LUZ MARIA KEN MD CM:CONSTR:REPORT OF CONSULTATION 1040 03/31/17 1725 interface
--- NOTE | 2017-03-31 06:30 | NUR ---
DR. PRIETO DOES NOT WANT ABG'S DONE UNTIL AFTER CHEST XRAY IS COMPLETED. WILL CONTINUE TO MONITOR.
[2017-03-31 06:31] LABS: BASO % 0.1 % (0.0-1.0); EOS # 0.1 10*3/uL (0.0-0.4); HEMOGLOBIN 13.8 g/dl (14.0-18.0); LYMPH # 2.4 10*3/uL (1.3-4.4); LYMPH % 22.8 % (27.0-41.0); MEAN CELL VOLUME 83.7 fl (80.0-94.0); MEAN CORPUSCULAR HGB 28.2 pg (27.0-31.0); MEAN CORPUSCULAR HGB CONC 33.7 g/dl (33.0-37.0); MEAN PLATELET VOLUME 10.4 fl (9.6-12.3); MONO # 0.7 10*3/uL (0.1-1.0); MONO % 6.3 % (3.0-9.0); NEUT # 7.3 10*3/uL (2.3-7.9); NEUT % 69.2 % (47.0-73.0); PLATELET COUNT AUTOMATED 214 10*3/uL (130-400); RED CELL DISTRI WIDTH 12.8 % (0-14.5); WHITE BLOOD COUNT 10.5 10*3/uL (4.8-10.8)
[2017-03-31 06:50] LABS: ALBUMIN 3.3 gm/dl (3.1-4.5); ALKALINE PHOSPHATASE 72 U/L (45-117); BUN 23 mg/dl (7-24); CHLORIDE 99 mmol/L (98-107); MAGNESIUM 1.9 mg/dL (1.5-2.1); POTASSIUM 4.2 mmol/L (3.5-5.1); SGOT/AST 22 IU/L (3-35); SGPT/ALT 23 U/L (12-78); SODIUM 137 mmol/L (136-145); TOTAL PROTEIN 7.3 gm/dL (6.4-8.2)
[2017-03-31 06:55] LABS: TROPONIN I < 0.015 ng/ml (<0.045)
[2017-03-31 07:27] LABS: ABG BASE EXCESS 1.3 mmol/L (-2.0-2.0); ABG HCO3 25.2 mmol/l (22-26); ARTERIAL BLOOD GAS PCO2 37.8 mmHg (35-45); ARTERIAL BLOOD GAS PH 7.435 (7.35-7.45); ARTERIAL BLOOD GAS PO2 75.5 mmHg (80-90)
--- NOTE | 2017-03-31 08:48 | NUR ---
CALLED [facility] TO SPEAK TO DR. KEN. WAS ABLE TO TALK TO WILLIE WHO TOLD DR. KEN ABOUT THE CONSULT FOR THE PATIENT. DR. KEN WAS ALREADY AWARE OF THE CONSULT AND STATED HE WOULD SEE THE PATIENT IN THE ER. NO CONCERNS AT THIS TIME.
--- NOTE | 2017-03-31 09:00 | NUR ---
A 51, admitted to , under the services of ALTAF Schmitt DO with a diagnosis of PNEUMONIA. Chief complaint is SOB AND WEAKNESS. Patient arrived via CART from ER. Monitor applied. Initial assessment completed. Vital signs taken and recorded. ALTAF SCHMITT DO notified of admission to the unit. Orders received. See assessment for past medical history, medications and allergies. Patient and/or family oriented to unit. [facility]. Clothing/patient valuable form completed. REGINA AUSTIN
--- NOTE | 2017-03-31 12:55 | NUR ---
PT WAS INSTRUCTED ON FLUTTER. PT TOLERATED WELL, PT CAN DO ON HIS OWN.
--- NOTE | 2017-03-31 15:06 | NUR ---
PATIENT STATES THAT HE IS REFUSING BRONCH WITH DR. KEN. DR. KEN WAS NOTIFIED AND AND STATED THAT IT IS FINE AND TO CANCEL IT.
--- NOTE | 2017-03-31 16:07 | NUR ---
DR. BORJAS CALLED AND NOTIFIED ABOUT 2X CRITICAL RESULTS FOR BGM. HE STATED TO GIVE HIGHEST DOSE PER SLIDING SCALE AND THAT HE WAS GOING TO CONT HIS 70/30 INSULIN. NO OTHER CONCERNS.
--- NOTE | 2017-03-31 20:00 | NUR ---
Patient resting quietly with no c/o discomfort. Respirations easy and regular. Vital signs stable. No overt distress. JACINTO NAIDU
--- NOTE | 2017-03-31 20:06 | NUR ---
24 HR chart check completed.
--- NOTE | 2017-03-31 22:02 | NUR ---
DR HELMS NOTIFIED OF STAT REFLEX OF 507. ORDER TO GIVE 10U OF ADDITIONAL COVERAGE RECEIVED.
--- NOTE | 2017-03-31 22:18 | NUR ---
EDUCATED ON RISKS OF NOT CHECKING GLUCOSE LEVEL AT HOME AFTER HE ADMITTED THAT HE DOES NOT.
[2017-04-01] VITALS: BP 133/59
--- NOTE | 2017-04-01 04:36 | NUR ---
SLEEPING. RESPIRATIONS EASY/REGULAR. NO SXS OF DISTRESS NOTED. CALL LIGHT IN REACH.
[2017-04-01 05:57] LABS: BASO % 0.1 % (0.0-1.0); LYMPH # 0.9 10*3/uL (1.3-4.4); LYMPH % 7.2 % (27.0-41.0); MEAN CELL VOLUME 84.5 fl (80.0-94.0); MEAN CORPUSCULAR HGB 28.3 pg (27.0-31.0); MEAN CORPUSCULAR HGB CONC 33.4 g/dl (33.0-37.0); MEAN PLATELET VOLUME 9.9 fl (9.6-12.3); MONO # 0.7 10*3/uL (0.1-1.0); MONO % 5.4 % (3.0-9.0); NEUT # 10.5 10*3/uL (2.3-7.9); NEUT % 86.5 % (47.0-73.0); PLATELET COUNT AUTOMATED 210 10*3/uL (130-400); RED BLOOD COUNT 4.14 10*6/uL (4.50-5.90); RED CELL DISTRI WIDTH 12.8 % (0-14.5); WHITE BLOOD COUNT 12.1 10*3/uL (4.8-10.8)
[2017-04-01 06:00] LABS: HEMOGLOBIN 11.7 g/dl (14.0-18.0)
[2017-04-01 06:17] LABS: ACT PARTIAL THROMBO TIME 22.3 SECONDS (20.8-31.5)
[2017-04-01 06:32] LABS: ALBUMIN 2.9 gm/dl (3.1-4.5); ALKALINE PHOSPHATASE 60 U/L (45-117); BUN 23 mg/dl (7-24); CHLORIDE 108 mmol/L (98-107); CREATININE 1.25 mg/dL (0.70-1.30); MAGNESIUM 2.3 mg/dL (1.5-2.1); PHOSPHOROUS 2.8 mg/dL (2.5-4.9); POTASSIUM 3.8 mmol/L (3.5-5.1); SGOT/AST 9 IU/L (3-35); SGPT/ALT 19 U/L (12-78); SODIUM 139 mmol/L (136-145)
[2017-04-01 08:00] VITALS: BP 130/60; BP 148/84
--- NOTE | 2017-04-01 08:00 | NUR ---
Evaporator Repairer in to talk to patient. Patient states lives at [address] with HIS GIRLFRIEND. There are 10 steps in the home. Physician: DR SAHU Pharmacy: USES [facility] ALSO [facility] [place] Home health services: NONE Patient's level of ADLs: INDEPENDENT Patient has working utilities: YES DME: [facility] Follow-up physician's appointment after d/c: WILL BE MADE PRIOR TO DC Does patient want to access PORTAL?: Discharge plan HOME. TARIQ BARRETT PT STATES HIS INSURANCE DOESNT PAY MUCH ON MEDS AND HE "ALWAYS GET MINE STAMPED HERE". I EXPLAINED THIS IS A ONCE IN A LIFETIME STAMP HERE. PT STATES "I'VE HAD MINE STAMPED AT LEAST 3 TIMES. LAST TIME WAS THURSDAY". HE WILL ASK MD FOR CHEAPEST MEDS POSSIBLE FROM [facility] IF NEEW SCRIPTS NEEDED.
[2017-04-01 12:00] VITALS: BP 152/80
[2017-04-01 12:03] VITALS: BP 145/82
[2017-04-01 16:00] VITALS: BP 144/73; BP 145/82; BP 156/96
--- NOTE | 2017-04-01 19:56 | NUR ---
PATIENT ARRIVED TO FLOOR FROM ER. PATIENT ORIENTED TO ROOM AND ADVISED THE RULES OF NOT LEAVING THE FLOOR AND NOT ALLOWED TO SMOKE.
--- NOTE | 2017-04-01 19:57 | NUR ---
MEDICATIONS REVIEWED WITH PATIENT
[2017-04-01 20:00] VITALS: BP 160/86
--- NOTE | 2017-04-01 22:06 | NUR ---
RESTORIL GIVEN PER ORDER FOR INSOMNIA PER PT. REQUEST SEE MAR.
[2017-04-02] VITALS: BP 159/78
--- NOTE | 2017-04-02 02:00 | NUR ---
SLEEPING. NO ACUTE DISTRESS NOTED.
[2017-04-02 06:15] LABS: BASO % 0.1 % (0.0-1.0); EOS # 0.1 10*3/uL (0.0-0.4); EOS % 0.5 % (1.0-4.0); HEMATOCRIT 34.2 % (42.0-52.0); HEMOGLOBIN 11.1 g/dl (14.0-18.0); LYMPH # 2.4 10*3/uL (1.3-4.4); LYMPH % 20.5 % (27.0-41.0); MEAN CELL VOLUME 87.5 fl (80.0-94.0); MEAN CORPUSCULAR HGB 28.4 pg (27.0-31.0); MEAN CORPUSCULAR HGB CONC 32.5 g/dl (33.0-37.0); MEAN PLATELET VOLUME 9.6 fl (9.6-12.3); MONO # 0.7 10*3/uL (0.1-1.0); MONO % 5.9 % (3.0-9.0); NEUT # 8.3 10*3/uL (2.3-7.9); PLATELET COUNT AUTOMATED 190 10*3/uL (130-400); RED BLOOD COUNT 3.91 10*6/uL (4.50-5.90); RED CELL DISTRI WIDTH 13.2 % (0-14.5); WHITE BLOOD COUNT 11.6 10*3/uL (4.8-10.8)
[2017-04-02 06:39] LABS: BUN 18 mg/dl (7-24); CHLORIDE 111 mmol/L (98-107); CREATININE 1.07 mg/dL (0.70-1.30); POTASSIUM 3.8 mmol/L (3.5-5.1); SODIUM 143 mmol/L (136-145)
[2017-04-02 08:00] VITALS: BP 138/74
--- NOTE | 2017-04-02 08:34 | NUR ---
PATIENT RESTING QUIETLY IN BED. NO DISTRESS NOTED. RESPIRATIONS EASY, REGULAR AT REST. LUNGS DIMINISHED WITH EXPIRATORY WHEEZES. PRODUCTIVE COUGH FOR CLEAR PER PT. WILL CONTINUE TO MONITOR. CALL LIGHT WITHIN REACH.
[2017-04-02 12:00] VITALS: BP 124/72
[2017-04-02 16:00] VITALS: BP 156/83
--- NOTE | 2017-04-02 16:00 | NUR ---
Patient resting quietly with no c/o discomfort. Respirations easy and regular. Vital signs stable. No overt distress. JORDON SALAS.
[2017-04-02 20:00] VITALS: BP 140/89
--- NOTE | 2017-04-02 20:00 | NUR ---
C/O SOB WHEN HE WAS UP WALKING IN HALLWAY. CALLED RESP. AND THEY ARE GOING TO DO HIS TREATMENT. PULSE OX 95-97% RA. LUNG SOUNDS HAD SCAT. WHEEZING WITH MOIST, NON PROD COUGH. ABD SOFT NORMOACTIVE BOWEL SOUNDS X 4 QUAD.
--- NOTE | 2017-04-02 20:30 | NUR ---
LUNG SOUNDS WHEEZING SCATTERED WITH MOIST COUGH BUT NON PRODUCTIVE PULSE OX 95-97%.
--- NOTE | 2017-04-02 22:45 | NUR ---
PT. REFUSED MUCINEX.
--- NOTE | 2017-04-02 23:30 | NUR ---
PT. AWAKE AND ORIENTED X 3. GLASSES ON. CRACKLES AND EXPIRATORY WHEEZE BILATERALLY TO LOWER LOBES, PT. STATED HE GETS SOB WHEN AMBULATING. S1S2, PPP, NO EDEMA, DENIES CP. BOWEL SOUNDS NORMOACTIVE X 4 QUADS. CALL LIGHT WITHIN REACH, BED IN LOWEST POSITION, WHEELS LOCKED.
[2017-04-03] VITALS: BP 134/61
[2017-04-03 06:17] LABS: BASO % 0.1 % (0.0-1.0); EOS % 0.2 % (1.0-4.0); HEMATOCRIT 36.6 % (42.0-52.0); HEMOGLOBIN 11.9 g/dl (14.0-18.0); LYMPH # 1.8 10*3/uL (1.3-4.4); LYMPH % 14.1 % (27.0-41.0); MEAN CELL VOLUME 87.1 fl (80.0-94.0); MEAN CORPUSCULAR HGB 28.3 pg (27.0-31.0); MEAN CORPUSCULAR HGB CONC 32.5 g/dl (33.0-37.0); MEAN PLATELET VOLUME 9.8 fl (9.6-12.3); MONO # 0.8 10*3/uL (0.1-1.0); MONO % 6.5 % (3.0-9.0); NEUT # 10.1 10*3/uL (2.3-7.9); NEUT % 77.9 % (47.0-73.0); PLATELET COUNT AUTOMATED 229 10*3/uL (130-400); RED CELL DISTRI WIDTH 13.2 % (0-14.5)
[2017-04-03 06:45] LABS: BUN 17 mg/dl (7-24); CHLORIDE 106 mmol/L (98-107); CREATININE 1.07 mg/dL (0.70-1.30); POTASSIUM 3.7 mmol/L (3.5-5.1); SODIUM 141 mmol/L (136-145)
[2017-04-03 08:00] VITALS: BP 156/90
[2017-04-03] MEDS ORDERED: MUCINEX ER600 MG PO (10:08)
[2017-04-03] MEDS ORDERED: PREDNISONE10 MG PO (10:09)
[2017-04-03] MEDS ORDERED: ZITHROMAX500 MG PO (10:13)
[2017-04-03] MEDS ORDERED: PROAIR HFA8.5 GM INH (12:19)
--- NOTE | 2017-04-03 13:40 | NUR ---
Discharge instructions reviewed with patient/family. Patient receptive and verbalizes understanding. Follow-up care arranged. Written instructions given to patient/family. PRITESH RODRIGUES
[2017-04-04 13:05] LABS: LEGIONELLA URINARY ANTIGEN Negative (Negative)
== END 2017-04-03 13:40 | disposition home or self-care (01) | DRG 871 ==
LOC: ED 05:46 → EDHOLD 07:48 → 5E 07:48
PROVIDERS: Emergency Medicine Emergency Medical Services; Family Medicine; Internal Medicine; ADMIT Emergency Medicine
DX: A41.9 Sepsis, unspecified organism (principal); J18.1 Lobar pneumonia, unspecified organism; E44.0 Moderate protein-calorie malnutrition; E11.65 Type 2 diabetes mellitus with hyperglycemia; J45.901 Unspecified asthma with (acute) exacerbation; D64.9 Anemia, unspecified; E78.5 Hyperlipidemia, unspecified; I10 Essential (primary) hypertension; J20.9 Acute bronchitis, unspecified; R07.89 Other chest pain; T38.0X5A Adverse effect of glucocorticoids and synthetic analogues, initial encounter; E55.9 Vitamin D deficiency, unspecified; G43.909 Migraine, unspecified, not intractable, without status migrainosus; E66.9 Obesity, unspecified; Z68.33 Body mass index [BMI] 33.0-33.9, adult; Z88.0 Allergy status to penicillin; Z82.49 Family history of ischemic heart disease and other diseases of the circulatory system; Z79.4 Long term (current) use of insulin; Z83.3 Family history of diabetes mellitus; Z80.9 Family history of malignant neoplasm, unspecified; Z79.2 Long term (current) use of antibiotics; Z79.84 Long term (current) use of oral hypoglycemic drugs; Z79.899 Other long term (current) drug therapy; Z91.14 Patient's other noncompliance with medication regimen

== ENCOUNTER 2017-09-29 18:52 | Emergency (ER) | payer OTHER ==
[~2017-09-29] VITALS: Wt 90.7 kg
[~2017-09-29 18:52] MED LIST changes: +PROAIR HFA8.5 GM INH; +ZITHROMAX500 MG PO
[2017-09-29] MEDS ORDERED: SULFAMETHOXAZOLE-TMP (18:58)
== END 2017-09-29 19:43 | disposition home or self-care (01) ==
LOC: ED 18:52
DX: L02.412 Cutaneous abscess of left axilla (principal); I10 Essential (primary) hypertension; E11.9 Type 2 diabetes mellitus without complications; Z88.0 Allergy status to penicillin

== ENCOUNTER 2018-04-24 18:22 | Inpatient (IN) | payer SELFPAY ==
[~2018-04-24] VITALS: Ht 167.6 cm; Wt 99.0 kg
--- NOTE | ~2018-04-24 | EKG ---
[place], [place] ELECTROCARDIOGRAM REPORT NAME: ROMMEL BENNETT UNIT #: [id number] ROOM: 520 DOCTOR: NOHEMI DRAFT REPORT BIRTHDATE: [birth year] [facility] Test Date: 2018-04-24 Test Time: 18:54:52 Pat Name: ROMMEL BENNETT Department: Room: 520 Gender: M Professor Of Education: KARIME : 1965 Requested By: AYLIN ZAMUDIO Order Number: [id number] Reading MD: Omar Carlos MD Measurements Intervals [place] Rate: 127 P: 75 MN: 104 QRS: 24 QRSD: 140 T: 25 QT: 342 QTc: 498 Interpretive Statements Sinus tachycardia Right bundle branch block Baseline wander in lead(s) V2 Electronically Signed On 04-25-2018 12:26:38 PDT by Omar Carlos MD CM:EKGRPT:ELECTROCARDIOGRAM REPORT 1854 1226 AYLIN ZAMUDIO EPIPHANY DRAFT REPORT AYLIN ZAMUDIO
--- NOTE | ~2018-04-24 | CON ---
[place], [place] REPORT OF CONSULTATION NAME: ROMMEL BENNETT UNIT #: [id number] ROOM: 520 DOCTOR: SUELLEN ALEGRIA MDLUZ MARIA BIRTHDATE: [birth year] DOS: 04/25/2018 PULMONARY CONSULTATION EVALUATION AND MANAGEMENT REASON FOR CONSULTATION: Assess the patient for abnormal finding on CT scan chest and others. CONSULTATION REQUESTED BY: Hospitalist Services. HISTORY OF PRESENT ILLNESS: This is a 52-year-old white male patient known to me with past history of bronchial asthma. The patient stated he has developed symptoms include shortness of breath for 7-10 days. He has been seen by the primary care physician, given CPAP, but symptoms did not resolve and noted worsening. He was seen back by the primary care physician as well and was prescribed the corticosteroids and intramuscular dexamethasone was also administered. The patient stated symptoms did not get better. Shortness of breath has been noted further worsening with cough and noted nonproductive, chest congestion. He was also noted symptoms of wheezing. The patient came into the Emergency Room yesterday where he has been admitted to the hospital. CT scan of chest was noted with some nodular densities. The patient denies symptoms of chest trauma. 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 EYES: Denies any burning, redness, tenderness, discharge. EAR, NOSE AND THROAT: Denies sore throat, hoarseness, otalgia, postnasal drainage or epistaxis. CARDIOVASCULAR: Denies anginal pain, edema, pain in lower extremities. GASTROINTESTINAL: No dysphagia, nausea, vomiting, diarrhea, abdominal pain, hematemesis, melena, or hematochezia. SKIN: Denies abnormal lesions or rashes. CENTRAL NERVOUS SYSTEM: Denies dizziness, headache, diplopia, or syncopal episodes. Remaining systems were reviewed, they were noted all negative. PAST MEDICAL HISTORY: 1. The patient was known with history of uncomplicated moderate persistent bronchial asthma. 2. History of past, recurrent bronchitis. 3. Type 2 diabetes mellitus. 4. Obesity. 5. Essential hypertension. 6. History of nonadherence with the treatment because of lack of the medication coverage at times because of his insurance issues. SOCIAL HISTORY: The patient is single, does not have any children. Works as a internet security specialist and accompanied. Denies use of chronic alcohol or illicit drug [place], [place] REPORT OF CONSULTATION NAME: ROMMEL BENNETT UNIT #: [id number] ROOM: [facility] DOCTOR: LUZ MARIA HYDE MD BIRTHDATE: [birth year] use or any tobacco use. PAST SURGICAL HISTORY: Noted with therapeutic bronchoscopy several years ago. FAMILY HISTORY: The patient's father at 80 years old, complications of myocardial infarction. Mother at 80+ years old, complication related to diabetes mellitus. HOME MEDICATIONS: Noted Proventil HFA inhaler p.r.n. use and nebulized bronchodilators. The current medications administered was noted use of Lovenox for DVT prophylaxis, sliding scale insulin coverage, Mucinex 1200 mg p.o. b.i.d., Solu-Medrol 40 mg q.8 hours, DuoNeb q.4 hours, Zithromax and Rocephin intravenous use. DRUG ALLERGIES: The patient noted as allergy to PENICILLINS. PHYSICAL EXAMINATION: GENERAL: A 52-year-old male patient who has been currently sitting on side of bed without any acute distress. Height of 5 feet 6 inches, weight of 218 pounds, BMI 35.2. VITAL SIGNS: For the patient which were recorded showed the temperature noted 99.2 degree Fahrenheit, normal temperature, respiratory rate 18-20, heart rate of 88-99, blood pressure 152/79-138/89. Pulse oxygen saturation noted on room air as 96% saturation. HEENT: Chronic moderate obesity. NECK: Supple. Head was atraumatic. CARDIOVASCULAR: S1, S2 is audible. LUNGS: The patient was noted with moderate decreased breath sounds. Scattered wheezing, no crackles. ABDOMEN: Soft, nontender. Bowel sounds present. It was obese. EXTREMITIES: The patient was noted without any edema, clubbing or cyanosis. CENTRAL NERVOUS SYSTEM: The patient's cranial nerve was noted intact. MUSCULOSKELETAL: Without any acute deformities. SKIN: No lesions or rashes. LABORATORY DATA: For this consultation. Lactic acid noted 1.8 yesterday on admission, CBC yesterday on admission WBC count 18.1, remaining CBC for the patient was noted as normal. The comprehensive metabolic panel of 04/24/2018, glucose 332. BUN normal, creatinine normal, remaining LFTs were noted as normal. Troponin for the patient was noted normal as well. Influenza A and B, nasal washing antigens were negative. The PT, PTT for the patient of 04/25/2018 noted as normal. CBC for the patient of 04/25/2018, WBC count 15.5, hemoglobin 13.9, platelet count was normal. CMP of the patient of 04/25/2018, glucose 334, BUN and creatinine were normal. Remaining electrolytes normal as well. IMAGING STUDIES: Chest x-ray that was done in the Emergency Room 04/24/2018 does not show any acute abnormal process. CT of the chest was completed last night ordered by his primary care attending on this admission, the patient noted with area of consolidation. There were no pulmonary embolism. The patient noted with centrilobular nodular densities, which are noted predominantly in the [place], [place] REPORT OF CONSULTATION NAME: ROMMEL BENNETT UNIT #: [id number] ROOM: [facility] DOCTOR: LUZ MARIA HYDE MD BIRTHDATE: [birth year] upper lungs. There was no lymphadenopathy. IMPRESSION: 1. The patient will be currently admitted to the hospital and the patient was noted with worsening respiratory symptoms despite the use of corticosteroids, bronchodilator from the home setting with failed outpatient treatment, currently noted with acute exacerbation of bronchial asthma. 2. Current nodular densities of the lungs, possible suspicion of hypersensitivity pneumonitis with other differential of eosinophilic pneumonia, questionable cryptogenic organizing pneumonia, usually distribution cryptogenic organizing pneumonia would consider more appropriate for distribution of infiltration, consolidation, which are not seen in this patient. 3. History of bronchial asthma as well. 4. Rule out malignant process at least one of the nodule noted about 10 mm of size in the right lung. PLAN OF MANAGEMENT: Continue corticosteroids, bronchodilators, other antibiotics. The workup for the current pulmonary nodule was available in this hospital. Decrease Solu-Medrol dose to 40 mg b.i.d. because of reduction in the wheezing at this time and also will help to improve the overall uncontrolled hyperglycemia. Other supportive therapy, plan of management, care plan for the patient with addition of changes in the treatment will be done based on progression of the illness. Order urine for legionella antigen as well as strep antigen. Mycoplasma antibody will be ordered as well for atypical pneumonia. Thank you for allowing me to participate in the care of this patient. LUZ MARIA KEN MD CM:CONSTR:REPORT OF CONSULTATION 1354 04/25/18 7710 interface
--- NOTE | ~2018-04-24 | PR ---
[place], [place] PROGRESS NOTE NAME: ROMMEL BENNETT UNIT #: [id number] ROOM: 520 DOCTOR: LUZ MARIA HYDE MD BIRTHDATE: [birth year] DOS: 04/26/2018 SUBJECTIVE: The patient noted comfortable at this time without acute distress, resting on the bed. He has not been noted any symptoms of chest pain, coughing or any sputum expectoration. Overall, feeling better. The patient is complaining of some sore throat with a cough. OBJECTIVE: VITAL SIGNS: For the patient, which were recorded showed the temperature noted as normal. The respiratory rate of 18, heart rate of 105, blood pressure 160/80. The pulse oxygen saturation room air 96% saturation. HEENT: No acute change. NECK: Supple. CARDIOVASCULAR: S1, S2 is audible. LUNGS: The patient noted without any crackles, mild expiratory wheezing bilaterally. ABDOMEN: Soft, nontender. EXTREMITIES: Without acute edema. LABORATORY DATA: ESR 45. CRP elevated at 9.13. CBC: WBC count 15.7, hemoglobin 12.4, platelet count normal. BMP; glucose 355, BUN and creatinine were normal. Remaining electrolytes were grossly normal as well. IMPRESSION: 1. The patient with pulmonary nodular opacity which has been noted differential of acute infection and other etiologies remains in consideration. 2. The patient with acute bronchial asthma exacerbation, responding to the treatment. PLAN OF MANAGEMENT: The patient could be considered for home discharge with oral tapering prednisone and the antibiotics. He was advised to follow up in my office for further assessment of current pulmonary nodule, rule out malignancy of the etiology, current pulmonary nodules. Other supportive therapy, plan of management and care plan and treatments. [place], [place] PROGRESS NOTE NAME: ROMMEL BENNETT UNIT #: [id number] ROOM: 520 DOCTOR: LUZ MARIA HYDE MD BIRTHDATE: [birth year] LUZ MARIA KEN MD CM:PNTRANS 1020 2256 LUZ MARIA ALEGRIA MD 04/26/18 2254 interface
[~2018-04-24 18:22] MED LIST changes: +SULFAMETHOXAZOLE-TMP
[2018-04-24 18:25] VITALS: BP 160/88
[2018-04-24 18:47] LABS: BASO % 0.1 % (0.0-1.0); EOS # 0.3 10*3/uL (0.0-0.4); EOS % 1.7 % (1.0-4.0); HEMATOCRIT 44.5 % (42.0-52.0); HEMOGLOBIN 14.7 g/dl (14.0-18.0); LYMPH % 5.6 % (27.0-41.0); MEAN CELL VOLUME 83.2 fl (80.0-94.0); MEAN CORPUSCULAR HGB 27.5 pg (27.0-31.0); MEAN PLATELET VOLUME 9.8 fl (9.6-12.3); MONO # 0.9 10*3/uL (0.1-1.0); MONO % 5.1 % (3.0-9.0); NEUT # 15.7 10*3/uL (2.3-7.9); NEUT % 87.1 % (47.0-73.0); PLATELET COUNT AUTOMATED 203 10*3/uL (130-400); RED BLOOD COUNT 5.35 10*6/uL (4.50-5.90); RED CELL DISTRI WIDTH 13.2 % (0-14.5); WHITE BLOOD COUNT 18.1 10*3/uL (4.8-10.8)
[2018-04-24 18:59] LABS: ACT PARTIAL THROMBO TIME 21.8 SECONDS (20.8-31.5); INTERNATIONAL NORM RATIO 0.9 (2.0-3.5)
[2018-04-24 19:03] VITALS: BP 137/91
[2018-04-24 19:05] LABS: ALBUMIN 3.2 gm/dl (3.1-4.5); ALKALINE PHOSPHATASE 73 U/L (45-117); BUN 19 mg/dl (7-24); CHLORIDE 105 mmol/L (98-107); CREATININE 1.29 mg/dL (0.70-1.30); POTASSIUM 4.4 mmol/L (3.5-5.1); SGOT/AST 16 IU/L (3-35); SGPT/ALT 26 U/L (12-78); SODIUM 139 mmol/L (136-145); TOTAL PROTEIN 7.3 gm/dL (6.4-8.2)
[2018-04-24 19:06] LABS: TROPONIN I < 0.015 ng/ml (<0.045)
[2018-04-24 20:35] VITALS: BP 137/91
[2018-04-25] VITALS: BP 159/88
[2018-04-25 06:14] LABS: HEMATOCRIT 41.4 % (42.0-52.0); HEMOGLOBIN 13.3 g/dl (14.0-18.0); MEAN CELL VOLUME 85.9 fl (80.0-94.0); MEAN CORPUSCULAR HGB 27.6 pg (27.0-31.0); MEAN CORPUSCULAR HGB CONC 32.1 g/dl (33.0-37.0); MEAN PLATELET VOLUME 10.1 fl (9.6-12.3); PLATELET COUNT AUTOMATED 181 10*3/uL (130-400); RED BLOOD COUNT 4.82 10*6/uL (4.50-5.90); RED CELL DISTRI WIDTH 13.2 % (0-14.5); WHITE BLOOD COUNT 15.5 10*3/uL (4.8-10.8)
[2018-04-25 06:42] LABS: ACT PARTIAL THROMBO TIME 24.4 SECONDS (20.8-31.5); INTERNATIONAL NORM RATIO 0.9 (2.0-3.5)
[2018-04-25 06:45] LABS: ALBUMIN 2.8 gm/dl (3.1-4.5); ALKALINE PHOSPHATASE 63 U/L (45-117); BUN 19 mg/dl (7-24); CHLORIDE 107 mmol/L (98-107); CHOLESTEROL 192 mg/dL (<200); CREATININE 1.28 mg/dL (0.70-1.30); FREE T4 0.84 ng/dl (0.76-1.46); HDL CHOLESTEROL 43 mg/dl (40-60); LDL CHOLESTEROL 136 mg/dL (9-159); PHOSPHOROUS 2.5 mg/dL (2.5-4.9); POTASSIUM 4.3 mmol/L (3.5-5.1); SGOT/AST 16 IU/L (3-35); SGPT/ALT 23 U/L (12-78); SODIUM 140 mmol/L (136-145); TOTAL PROTEIN 6.5 gm/dL (6.4-8.2); TRIGLYCERIDES 67 mg/dl (<150); VLDL CHOLESTEROL 13 mg/dL (6-40)
[2018-04-25 06:48] LABS: PLATELET SUFFICIENCY NORMAL (NORMAL); TOTAL CELLS COUNTED 100 #CELLS
[2018-04-25 08:00] VITALS: BP 138/80
[2018-04-25] MEDS ORDERED: TESSALON PERLE100 M1 PO (10:11)
[2018-04-25] MEDS ORDERED: Amaryl2 MG PO (10:11)
[2018-04-25] MEDS ORDERED: VENTOLIN 02.5 MG/3 M INH (10:12)
[2018-04-25 12:00] VITALS: BP 152/79
[2018-04-25 16:00] VITALS: BP 142/76
[2018-04-25 20:00] VITALS: BP 156/79
[2018-04-26] VITALS: BP 158/82
[2018-04-26 06:12] LABS: HEMATOCRIT 38.8 % (42.0-52.0); HEMOGLOBIN 12.4 g/dl (14.0-18.0); MEAN CELL VOLUME 86.4 fl (80.0-94.0); MEAN CORPUSCULAR HGB 27.6 pg (27.0-31.0); MEAN PLATELET VOLUME 10.4 fl (9.6-12.3); PLATELET COUNT AUTOMATED 180 10*3/uL (130-400); RED BLOOD COUNT 4.49 10*6/uL (4.50-5.90); RED CELL DISTRI WIDTH 13.6 % (0-14.5); WHITE BLOOD COUNT 15.7 10*3/uL (4.8-10.8)
[2018-04-26 06:13] LABS: BUN 21 mg/dl (7-24); CHLORIDE 108 mmol/L (98-107); CREATININE 1.12 mg/dL (0.70-1.30); POTASSIUM 4.6 mmol/L (3.5-5.1); SODIUM 140 mmol/L (136-145)
[2018-04-26 07:03] LABS: PLATELET SUFFICIENCY NORMAL (NORMAL); TOTAL CELLS COUNTED 100 #CELLS
[2018-04-26 08:00] VITALS: BP 160/80
[2018-04-26] MEDS ORDERED: PREDNISONE10 MG PO (09:34)
[2018-04-26] MEDS ORDERED: LEVAQUIN750 M1 PO (09:34)
[2018-04-27 08:07] LABS: IMMUNOGLOBULIN M, QNT 62 mg/dL (20-172); RHEUMATOID ARTHRITIS FACTOR 12.1 IU/mL (0.0-13.9)
[2018-04-27 15:06] LABS: ALDOLASE 002030 9.1 U/L (3.3-10.3); ANGIOTENSIN-CONVERTING ENZYME 53 U/L (14-82)
[2018-04-27 16:08] LABS: ATYPICAL PANCA <1:20 titer (Neg:<1:20); CYTOPLASMIC (C-ANCA) <1:20 titer (Neg:<1:20)
[2018-04-27 22:04] LABS: IGG SUBCLASS 1 279 mg/dL (248-810); IGG SUBCLASS 2 221 mg/dL (130-555); IGG SUBCLASS 3 43 mg/dL (15-102); IGG SUBCLASS 4 27 mg/dL (2-96); IMMUNOGLOBULIN G, QNT 622 mg/dL (700-1600)
[2018-04-28 17:08] LABS: IMMUNOGLOBULIN IgE 002170 14 IU/mL (0-100)
== END 2018-04-26 12:16 | disposition home or self-care (01) | DRG 872 ==
LOC: ED 18:22 → 5E 19:21 → EDHOLD 19:21 → 5E 20:19
PROVIDERS: Family Medicine; Internal Medicine; Internal Medicine Critical Care Medicine; Nurse Practitioner Family
DX: A41.9 Sepsis, unspecified organism (principal); J84.116 Cryptogenic organizing pneumonia; J45.21 Mild intermittent asthma with (acute) exacerbation; E44.0 Moderate protein-calorie malnutrition; E11.65 Type 2 diabetes mellitus with hyperglycemia; R91.1 Solitary pulmonary nodule; G43.909 Migraine, unspecified, not intractable, without status migrainosus; E66.01 Morbid (severe) obesity due to excess calories; E55.9 Vitamin D deficiency, unspecified; I10 Essential (primary) hypertension; Z79.4 Long term (current) use of insulin; Z68.35 Body mass index [BMI] 35.0-35.9, adult; Z88.0 Allergy status to penicillin; Z79.84 Long term (current) use of oral hypoglycemic drugs; Z79.899 Other long term (current) drug therapy; Z87.01 Personal history of pneumonia (recurrent); Z82.49 Family history of ischemic heart disease and other diseases of the circulatory system; Z83.3 Family history of diabetes mellitus; Z80.9 Family history of malignant neoplasm, unspecified

== ENCOUNTER → 2018-05-07 | Outpatient (CLI) | payer SELFPAY ==
[~2018-05-07] MED LIST changes: +AVPAK AZITHROM250 M1 PO; +Amaryl2 MG PO; +PREDNISONE50 MG PO; +TESSALON PERLE100 M1 PO; +VENTOLIN 02.5 MG/3 M INH
== END | disposition home or self-care (01) ==
LOC: RESCLI 01:03
DX: Z09 Encounter for follow-up examination after completed treatment for conditions other than malignant neoplasm (principal); I10 Essential (primary) hypertension; E78.5 Hyperlipidemia, unspecified; E11.65 Type 2 diabetes mellitus with hyperglycemia; E66.09 Other obesity due to excess calories; J45.909 Unspecified asthma, uncomplicated; Z79.4 Long term (current) use of insulin

== ENCOUNTER → 2018-06-11 | Outpatient (CLI) | payer SELFPAY | END | disposition home or self-care (01) | LOC: RESCLI 09:14 | DX: Z12.11 Encounter for screening for malignant neoplasm of colon (principal); E55.9 Vitamin D deficiency, unspecified; J02.9 Acute pharyngitis, unspecified; E66.09 Other obesity due to excess calories; E11.65 Type 2 diabetes mellitus with hyperglycemia; E78.5 Hyperlipidemia, unspecified; I10 Essential (primary) hypertension; J45.909 Unspecified asthma, uncomplicated; R00.0 Tachycardia, unspecified; Z79.4 Long term (current) use of insulin; Z79.899 Other long term (current) drug therapy; Z88.0 Allergy status to penicillin ==

== ENCOUNTER 2018-06-20 20:12 | Emergency (ER) | payer OTHER ==
[~2018-06-20] VITALS: Ht 167.6 cm; Wt 99.3 kg
--- NOTE | ~2018-06-20 | EKG ---
[place], [place] ELECTROCARDIOGRAM REPORT NAME: ROMMEL BENNETT UNIT #: [id number] ROOM: DOCTOR: EPIPHANY DRAFT REPORT BIRTHDATE: [birth year] [facility] Test Date: 2018-06-20 Test Time: 20:29:14 Pat Name: ROMMEL BENNETT Department: ER Room: 17 Gender: M Calenderer: Ronak Saleh : 1965 Requested By: EDDA EMERY Order Number: [id number] Reading MD: Omar Carlos MD Measurements Intervals [place] Rate: 108 P: 81 VT: 140 QRS: 69 QRSD: 147 T: 68 QT: 368 QTc: 494 Interpretive Statements Sinus tachycardia Right bundle branch block Compared to ECG 04/24/2018 18:54:52 No significant changes Electronically Signed On 06-21-2018 14:23:54 PST by Omar Carlos MD CM:EKGRPT:ELECTROCARDIOGRAM REPORT 28 1423 EDDA CASTELLON DRAFT REPORT EDDA EMERY DO
[~2018-06-20 20:12] MED LIST changes: -AVPAK AZITHROM250 M1 PO; -PREDNISONE50 MG PO
[2018-06-20 20:35] LABS: BASO % 0.2 % (0.0-1.0); EOS # 0.5 10*3/uL (0.0-0.4); EOS % 4.4 % (1.0-4.0); HEMATOCRIT 38.8 % (42.0-52.0); HEMOGLOBIN 13.2 g/dl (14.0-18.0); LYMPH # 1.8 10*3/uL (1.3-4.4); MEAN CELL VOLUME 83.8 fl (80.0-94.0); MEAN CORPUSCULAR HGB 28.5 pg (27.0-31.0); MEAN PLATELET VOLUME 9.7 fl (9.6-12.3); MONO # 0.8 10*3/uL (0.1-1.0); MONO % 7.6 % (3.0-9.0); NEUT # 7.9 10*3/uL (2.3-7.9); NEUT % 71.3 % (47.0-73.0); PLATELET COUNT AUTOMATED 202 10*3/uL (130-400); RED BLOOD COUNT 4.63 10*6/uL (4.50-5.90); RED CELL DISTRI WIDTH 13.6 % (0-14.5)
[2018-06-20 20:55] LABS: ALBUMIN 3.1 gm/dl (3.1-4.5); ALKALINE PHOSPHATASE 67 U/L (45-117); BUN 32 mg/dl (7-24); CHLORIDE 103 mmol/L (98-107); CREATININE 1.43 mg/dL (0.70-1.30); SGOT/AST 15 IU/L (3-35); SGPT/ALT 24 U/L (12-78); SODIUM 138 mmol/L (136-145); TOTAL PROTEIN 7.1 gm/dL (6.4-8.2)
[2018-06-20 20:56] LABS: TROPONIN I < 0.015 ng/ml (<0.045)
[2018-06-20] MEDS ORDERED: AVPAK AZITHROM250 M1 PO (21:51)
[2018-06-20] MEDS ORDERED: PREDNISONE50 MG PO (21:51)
== END 2018-06-20 21:58 | disposition home or self-care (01) ==
LOC: ED 20:12
PROVIDERS: Student in an Organized Health Care Education/Training Program
DX: R05 Cough (principal); R06.02 Shortness of breath; E11.9 Type 2 diabetes mellitus without complications; J45.909 Unspecified asthma, uncomplicated; I10 Essential (primary) hypertension; G43.909 Migraine, unspecified, not intractable, without status migrainosus; E66.9 Obesity, unspecified; Z88.0 Allergy status to penicillin; Z79.899 Other long term (current) drug therapy

== ENCOUNTER → 2018-07-24 | Outpatient (CLI) | payer OTHER ==
[~2018-07-24] MED LIST changes: +AVPAK AZITHROM250 M1 PO; +PREDNISONE50 MG PO
== END | disposition home or self-care (01) ==
LOC: LAB 09:03
DX: Z79.4 Long term (current) use of insulin (principal)

== ENCOUNTER → 2018-07-30 | Outpatient (CLI) | payer OTHER | END | disposition home or self-care (01) | LOC: RESCLI 01:54 | DX: E78.5 Hyperlipidemia, unspecified (principal); J45.909 Unspecified asthma, uncomplicated; I10 Essential (primary) hypertension; E11.65 Type 2 diabetes mellitus with hyperglycemia; E66.09 Other obesity due to excess calories; E55.9 Vitamin D deficiency, unspecified; Z79.4 Long term (current) use of insulin; Z79.899 Other long term (current) drug therapy; Z88.0 Allergy status to penicillin ==

== ENCOUNTER → 2018-09-03 | Outpatient (CLI) | payer OTHER ==
[~2018-09-03] MED LIST changes: +PREDNISONE20 M1 PO; +PROVENTIL HFA6.7 GM INH; +TESSALON PERLE100 MG PO
== END | disposition home or self-care (01) ==
LOC: RESCLI 01:16
DX: I10 Essential (primary) hypertension (principal); J45.909 Unspecified asthma, uncomplicated; E78.5 Hyperlipidemia, unspecified; E11.65 Type 2 diabetes mellitus with hyperglycemia; E66.09 Other obesity due to excess calories; E55.9 Vitamin D deficiency, unspecified; Z79.4 Long term (current) use of insulin; Z79.899 Other long term (current) drug therapy; Z88.0 Allergy status to penicillin

== ENCOUNTER → 2018-10-11 | Outpatient (CLI) | payer OTHER ==
[2018-10-11 17:09] LABS: BASO % 0.2 % (0.0-1.0); EOS # 0.4 10*3/uL (0.0-0.4); EOS % 4.2 % (1.0-4.0); HEMATOCRIT 39.8 % (42.0-52.0); HEMOGLOBIN 13.1 g/dl (14.0-18.0); LYMPH # 1.6 10*3/uL (1.3-4.4); MEAN CELL VOLUME 85.8 fl (80.0-94.0); MEAN CORPUSCULAR HGB 28.2 pg (27.0-31.0); MEAN CORPUSCULAR HGB CONC 32.9 g/dl (33.0-37.0); MEAN PLATELET VOLUME 10.1 fl (9.6-12.3); MONO # 0.6 10*3/uL (0.1-1.0); MONO % 6.6 % (3.0-9.0); NEUT # 6.8 10*3/uL (2.3-7.9); NEUT % 71.8 % (47.0-73.0); PLATELET COUNT AUTOMATED 218 10*3/uL (130-400); RED BLOOD COUNT 4.64 10*6/uL (4.50-5.90); RED CELL DISTRI WIDTH 12.4 % (0-14.5); WHITE BLOOD COUNT 9.5 10*3/uL (4.8-10.8)
[2018-10-11 17:37] LABS: ALBUMIN 3.4 gm/dl (3.1-4.5); CREATININE 1.51 mg/dL (0.70-1.30); POTASSIUM 4.6 mmol/L (3.5-5.1); TOTAL PROTEIN 7.5 gm/dL (6.4-8.2)
== END | disposition home or self-care (01) ==
LOC: RESCLI 12:46
PROVIDERS: Internal Medicine
DX: E11.9 Type 2 diabetes mellitus without complications (principal); R79.89 Other specified abnormal findings of blood chemistry; Z79.899 Other long term (current) drug therapy; Z88.0 Allergy status to penicillin

== ENCOUNTER → 2018-11-05 | Outpatient (CLI) | payer OTHER | END | disposition home or self-care (01) | LOC: RESCLI 01:05 | DX: J45.909 Unspecified asthma, uncomplicated (principal); I10 Essential (primary) hypertension; E11.9 Type 2 diabetes mellitus without complications; E78.5 Hyperlipidemia, unspecified; E55.9 Vitamin D deficiency, unspecified; J30.2 Other seasonal allergic rhinitis; Z79.899 Other long term (current) drug therapy; Z79.84 Long term (current) use of oral hypoglycemic drugs; Z88.0 Allergy status to penicillin ==

== ENCOUNTER → 2019-01-13 | Outpatient (CLI) | payer OTHER | END | disposition home or self-care (01) | LOC: RESCLI 00:24 | DX: Z12.5 Encounter for screening for malignant neoplasm of prostate (principal); J45.909 Unspecified asthma, uncomplicated; I10 Essential (primary) hypertension; E55.9 Vitamin D deficiency, unspecified; E78.5 Hyperlipidemia, unspecified; E11.9 Type 2 diabetes mellitus without complications; E66.09 Other obesity due to excess calories; Z79.899 Other long term (current) drug therapy ==

== ENCOUNTER 2019-03-09 10:17 | Emergency (ER) | payer SELFPAY ==
[~2019-03-09] VITALS: Ht 167.6 cm; Wt 95.3 kg
--- NOTE | ~2019-03-09 | EKG ---
[place], [place] ELECTROCARDIOGRAM REPORT NAME: ROMMEL BENNETT UNIT #: [id number] ROOM: DOCTOR: EPIPHANY DRAFT REPORT BIRTHDATE: [birth year] [facility] Test Date: 2019-03-09 Test Time: 10:36:52 Pat Name: ROMMEL BENNETT Department: Room: Gender: Cops: Neema Vasquez : 1965 Requested By: KONG PADRON DNP Order Number: [id number] Reading MD: Al Dong MD Measurements Intervals [place] Rate: 82 P: 70 AL: 141 QRS: 60 QRSD: 153 T: 58 QT: 398 QTc: 465 Interpretive Statements Sinus rhythm Right bundle branch block Electronically Signed On 03-09-2019 12:48:25 PDT by Al Dong MD CM:EKGRPT:ELECTROCARDIOGRAM REPORT 1036 1248 KONG PADRON DNP EPIPHANY DRAFT REPORT KONG PADRON DNP
[~2019-03-09 10:17] MED LIST changes: -PREDNISONE20 M1 PO; -PROVENTIL HFA6.7 GM INH; -TESSALON PERLE100 MG PO
[2019-03-09 10:52] LABS: BASO % 0.1 % (0.0-1.0); EOS # 0.1 10*3/uL (0.0-0.4); EOS % 0.9 % (1.0-4.0); HEMATOCRIT 39.3 % (42.0-52.0); HEMOGLOBIN 12.7 g/dl (14.0-18.0); LYMPH % 8.7 % (27.0-41.0); MEAN CELL VOLUME 86.8 fl (80.0-94.0); MEAN CORPUSCULAR HGB CONC 32.3 g/dl (33.0-37.0); MEAN PLATELET VOLUME 9.8 fl (9.6-12.3); MONO # 0.7 10*3/uL (0.1-1.0); MONO % 5.9 % (3.0-9.0); NEUT # 9.5 10*3/uL (2.3-7.9); PLATELET COUNT AUTOMATED 211 10*3/uL (130-400); RED BLOOD COUNT 4.53 10*6/uL (4.50-5.90); RED CELL DISTRI WIDTH 13.2 % (0-14.5); WHITE BLOOD COUNT 11.3 10*3/uL (4.8-10.8)
[2019-03-09 11:02] LABS: ACT PARTIAL THROMBO TIME 27.5 SECONDS (20.0-32.1); INTERNATIONAL NORM RATIO 0.9 (2.0-3.5)
[2019-03-09 11:06] LABS: ALBUMIN 3.3 gm/dl (3.1-4.5); ALKALINE PHOSPHATASE 60 U/L (45-117); BUN 24 mg/dl (7-24); CHLORIDE 105 mmol/L (98-107); CREATININE 1.45 mg/dL (0.70-1.30); LIPASE 75 U/L (73-393); SGOT/AST 14 IU/L (3-35); SGPT/ALT 26 U/L (12-78); SODIUM 139 mmol/L (136-145); TOTAL PROTEIN 7.3 gm/dL (6.4-8.2)
[2019-03-09 11:08] LABS: TROPONIN I < 0.015 ng/ml (<0.045)
[2019-03-09 11:23] LABS: BILIRUBIN NEGATIVE (NEGATIVE); BLOOD TRACE-INTACT (NEGATIVE); CLARITY CLEAR (CLEAR); COLOR YELLOW (YELLOW); GLUCOSE NEGATIVE (NEGATIVE); KETONE NEGATIVE (NEGATIVE); LEUKO ESTERASE NEGATIVE (NEGATIVE); NITRITE NEGATIVE (NEGATIVE); SPECIFIC GRAVITY >= 1.030 (1.005-1.030); UROBILINOGEN 0.2 E.U./dl (0.2-1.0)
[2019-03-09 11:33] LABS: BACTERIA 2+; MUCOUS TRACE; RBC 0-2 rbc/hpf (0-2); WBC 0-2 wbc/hpf (0-5)
[2019-03-09] MEDS ORDERED: PREDNISONE20 M1 PO (13:57)
[2019-03-09] MEDS ORDERED: TESSALON PERLE100 MG PO (13:57)
[2019-03-09] MEDS ORDERED: PROVENTIL HFA6.7 GM INH (13:57)
[2019-03-09] MEDS ORDERED: ZITHROMAX500 MG PO (13:57)
== END 2019-03-09 14:12 | disposition home or self-care (01) ==
LOC: ED 10:17
PROVIDERS: Nurse Practitioner Family
DX: R11.2 Nausea with vomiting, unspecified (principal); J18.9 Pneumonia, unspecified organism; R53.1 Weakness; R05 Cough; R10.13 Epigastric pain; Z88.0 Allergy status to penicillin; Z79.2 Long term (current) use of antibiotics; Z79.899 Other long term (current) drug therapy; Z79.4 Long term (current) use of insulin

== ENCOUNTER → 2019-04-27 | Outpatient (CLI) | payer SELFPAY ==
[~2019-04-27] MED LIST changes: +PREDNISONE20 M1 PO; +PROVENTIL HFA6.7 GM INH; +TESSALON PERLE100 MG PO
== END | disposition home or self-care (01) ==
LOC: RESCLI 02:12
DX: E55.9 Vitamin D deficiency, unspecified (principal); J30.2 Other seasonal allergic rhinitis; E78.5 Hyperlipidemia, unspecified; E11.9 Type 2 diabetes mellitus without complications; I10 Essential (primary) hypertension; N52.9 Male erectile dysfunction, unspecified; E66.09 Other obesity due to excess calories; Z79.4 Long term (current) use of insulin; Z79.899 Other long term (current) drug therapy

== ENCOUNTER → 2019-05-29 | Outpatient (CLI) | payer SELFPAY ==
[2019-05-29 08:25] LABS: BASO % 0.3 % (0.0-1.0); EOS # 0.7 10*3/uL (0.0-0.4); EOS % 7.3 % (1.0-4.0); HEMATOCRIT 39.6 % (42.0-52.0); HEMOGLOBIN 12.6 g/dl (14.0-18.0); LYMPH # 1.7 10*3/uL (1.3-4.4); LYMPH % 18.7 % (27.0-41.0); MEAN CELL VOLUME 87.2 fl (80.0-94.0); MEAN CORPUSCULAR HGB 27.8 pg (27.0-31.0); MEAN CORPUSCULAR HGB CONC 31.8 g/dl (33.0-37.0); MEAN PLATELET VOLUME 9.9 fl (9.6-12.3); MONO # 0.7 10*3/uL (0.1-1.0); MONO % 7.7 % (3.0-9.0); NEUT # 5.9 10*3/uL (2.3-7.9); NEUT % 65.8 % (47.0-73.0); PLATELET COUNT AUTOMATED 213 10*3/uL (130-400); RED BLOOD COUNT 4.54 10*6/uL (4.50-5.90)
[2019-05-29 08:55] LABS: ALBUMIN 3.3 gm/dl (3.1-4.5); ALKALINE PHOSPHATASE 57 U/L (45-117); BUN 28 mg/dl (7-24); CHLORIDE 109 mmol/L (98-107); CREATININE 1.34 mg/dL (0.70-1.30); POTASSIUM 4.1 mmol/L (3.5-5.1); SGOT/AST 23 IU/L (3-35); SGPT/ALT 24 U/L (12-78); SODIUM 140 mmol/L (136-145); TOTAL PROTEIN 6.8 gm/dL (6.4-8.2)
[2019-05-31 19:04] LABS: TESTOSTERONE FREE, (DIRECT) 9.6 pg/mL (7.2-24.0)
== END | disposition home or self-care (01) ==
LOC: LAB 08:00
PROVIDERS: Student in an Organized Health Care Education/Training Program
DX: E11.9 Type 2 diabetes mellitus without complications (principal); E55.9 Vitamin D deficiency, unspecified; N52.9 Male erectile dysfunction, unspecified

== ENCOUNTER → 2019-06-02 | Outpatient (CLI) | payer SELFPAY | END | disposition home or self-care (01) | LOC: RESCLI 00:39 | DX: J45.909 Unspecified asthma, uncomplicated (principal); E55.9 Vitamin D deficiency, unspecified; E78.5 Hyperlipidemia, unspecified; N52.9 Male erectile dysfunction, unspecified; E11.9 Type 2 diabetes mellitus without complications; I10 Essential (primary) hypertension; Z79.899 Other long term (current) drug therapy ==

== ENCOUNTER → 2019-08-10 | Outpatient (CLI) | payer OTHER | END | disposition home or self-care (01) | LOC: RESCLI 16:22 | DX: E11.9 Type 2 diabetes mellitus without complications (principal); I10 Essential (primary) hypertension; N52.9 Male erectile dysfunction, unspecified; J45.909 Unspecified asthma, uncomplicated; E55.9 Vitamin D deficiency, unspecified; J30.2 Other seasonal allergic rhinitis; E78.5 Hyperlipidemia, unspecified; E66.09 Other obesity due to excess calories; Z79.4 Long term (current) use of insulin; Z79.899 Other long term (current) drug therapy ==

== ENCOUNTER → 2019-08-15 | Outpatient (CLI) | payer OTHER ==
[2019-08-15 14:44] LABS: BASO % 0.3 % (0.0-1.0); EOS # 0.6 10*3/uL (0.0-0.4); EOS % 5.7 % (1.0-4.0); HEMATOCRIT 43.8 % (42.0-52.0); HEMOGLOBIN 13.7 g/dl (14.0-18.0); LYMPH % 19.8 % (27.0-41.0); MEAN CELL VOLUME 86.2 fl (80.0-94.0); MEAN CORPUSCULAR HGB CONC 31.3 g/dl (33.0-37.0); MEAN PLATELET VOLUME 9.6 fl (9.6-12.3); MONO % 10.3 % (3.0-9.0); NEUT # 6.4 10*3/uL (2.3-7.9); NEUT % 63.5 % (47.0-73.0); PLATELET COUNT AUTOMATED 246 10*3/uL (130-400); RED BLOOD COUNT 5.08 10*6/uL (4.50-5.90); RED CELL DISTRI WIDTH 12.8 % (0-14.5); WHITE BLOOD COUNT 10.1 10*3/uL (4.8-10.8)
[2019-08-15 15:14] LABS: ALBUMIN 3.5 gm/dl (3.1-4.5); CREATININE 2.27 mg/dL (0.70-1.30); POTASSIUM 4.7 mmol/L (3.5-5.1); TOTAL PROTEIN 7.3 gm/dL (6.4-8.2)
== END | disposition home or self-care (01) ==
LOC: RESCLI 10:06
PROVIDERS: Student in an Organized Health Care Education/Training Program
DX: J18.9 Pneumonia, unspecified organism (principal); J45.909 Unspecified asthma, uncomplicated; I10 Essential (primary) hypertension; E78.5 Hyperlipidemia, unspecified; E11.65 Type 2 diabetes mellitus with hyperglycemia; E66.09 Other obesity due to excess calories; E55.9 Vitamin D deficiency, unspecified; J30.2 Other seasonal allergic rhinitis; E11.9 Type 2 diabetes mellitus without complications; N52.9 Male erectile dysfunction, unspecified; Z79.899 Other long term (current) drug therapy; Z79.4 Long term (current) use of insulin; Z88.0 Allergy status to penicillin

== ENCOUNTER 2019-08-16 05:57 | Emergency (ER) | payer OTHER ==
[~2019-08-16] VITALS: Ht 167.6 cm; Wt 100.7 kg
[2019-08-16 06:59] LABS: BASO % 0.1 % (0.0-1.0); EOS # 0.4 10*3/uL (0.0-0.4); EOS % 2.8 % (1.0-4.0); HEMATOCRIT 40.2 % (42.0-52.0); HEMOGLOBIN 12.9 g/dl (14.0-18.0); LYMPH # 1.1 10*3/uL (1.3-4.4); LYMPH % 7.9 % (27.0-41.0); MEAN CELL VOLUME 85.9 fl (80.0-94.0); MEAN CORPUSCULAR HGB 27.6 pg (27.0-31.0); MEAN CORPUSCULAR HGB CONC 32.1 g/dl (33.0-37.0); MEAN PLATELET VOLUME 10.1 fl (9.6-12.3); MONO # 0.9 10*3/uL (0.1-1.0); MONO % 6.4 % (3.0-9.0); NEUT # 11.6 10*3/uL (2.3-7.9); NEUT % 82.5 % (47.0-73.0); PLATELET COUNT AUTOMATED 198 10*3/uL (130-400); RED BLOOD COUNT 4.68 10*6/uL (4.50-5.90); RED CELL DISTRI WIDTH 12.8 % (0-14.5); WHITE BLOOD COUNT 14.1 10*3/uL (4.8-10.8)
[2019-08-16 07:19] LABS: ALBUMIN 3.3 gm/dl (3.1-4.5); CREATININE 1.75 mg/dL (0.70-1.30)
[2019-08-16] MEDS ORDERED: PREDNISONE50 MG PO (09:09)
== END 2019-08-16 09:45 | disposition home or self-care (01) ==
LOC: ED 05:57
PROVIDERS: Emergency Medicine
DX: J45.901 Unspecified asthma with (acute) exacerbation (principal); E11.9 Type 2 diabetes mellitus without complications; I10 Essential (primary) hypertension; G43.909 Migraine, unspecified, not intractable, without status migrainosus; E66.9 Obesity, unspecified; Z88.0 Allergy status to penicillin; Z79.2 Long term (current) use of antibiotics; Z79.899 Other long term (current) drug therapy; Z79.4 Long term (current) use of insulin

== ENCOUNTER 2019-08-25 06:05 | Emergency (ER) | payer OTHER ==
[~2019-08-25] VITALS: Ht 167.6 cm; Wt 99.8 kg
[2019-08-25] MEDS ORDERED: PREDNISONE20 M1 PO (06:59)
== END 2019-08-25 06:59 | disposition home or self-care (01) ==
LOC: ED 06:05
DX: J20.9 Acute bronchitis, unspecified (principal); J45.909 Unspecified asthma, uncomplicated; I10 Essential (primary) hypertension; E11.9 Type 2 diabetes mellitus without complications; G43.909 Migraine, unspecified, not intractable, without status migrainosus; E66.9 Obesity, unspecified; Z88.0 Allergy status to penicillin; Z79.899 Other long term (current) drug therapy; Z79.4 Long term (current) use of insulin

== ENCOUNTER 2019-10-10 10:30 | Emergency (ER) | payer OTHER ==
[~2019-10-10] VITALS: Ht 162.5 cm; Wt 88.5 kg
[2019-10-10 11:07] LABS: BASO % 0.2 % (0.0-1.0); EOS # 0.4 10*3/uL (0.0-0.4); EOS % 3.1 % (1.0-4.0); HEMATOCRIT 37.1 % (42.0-52.0); LYMPH # 1.1 10*3/uL (1.3-4.4); LYMPH % 9.3 % (27.0-41.0); MEAN CELL VOLUME 86.3 fl (80.0-94.0); MEAN CORPUSCULAR HGB 27.9 pg (27.0-31.0); MEAN CORPUSCULAR HGB CONC 32.3 g/dl (33.0-37.0); MEAN PLATELET VOLUME 9.6 fl (9.6-12.3); MONO # 0.8 10*3/uL (0.1-1.0); MONO % 7.1 % (3.0-9.0); NEUT # 9.1 10*3/uL (2.3-7.9); NEUT % 79.9 % (47.0-73.0); PLATELET COUNT AUTOMATED 219 10*3/uL (130-400); RED CELL DISTRI WIDTH 13.6 % (0-14.5); WHITE BLOOD COUNT 11.3 10*3/uL (4.8-10.8)
[2019-10-10 11:21] LABS: ALBUMIN 2.9 gm/dl (3.1-4.5); CREATININE 1.48 mg/dL (0.70-1.30); POTASSIUM 4.4 mmol/L (3.5-5.1); TOTAL PROTEIN 6.8 gm/dL (6.4-8.2)
[2019-10-10] MEDS ORDERED: TESSALON PERLE100 M1 PO (13:00)
[2019-10-10] MEDS ORDERED: DOXYCYCLINE100 M3 PO (13:00)
[2019-10-10] MEDS ORDERED: PROVENTIL HFA6.7 GM INH (13:00)
== END 2019-10-10 13:01 | disposition home or self-care (01) ==
LOC: ED 10:30
PROVIDERS: Internal Medicine
DX: J18.9 Pneumonia, unspecified organism (principal); I10 Essential (primary) hypertension; E11.9 Type 2 diabetes mellitus without complications; J45.909 Unspecified asthma, uncomplicated; Z88.0 Allergy status to penicillin; Z79.899 Other long term (current) drug therapy; Z79.4 Long term (current) use of insulin

== ENCOUNTER 2019-10-18 11:31 | Emergency (ER) | payer OTHER ==
[~2019-10-18] VITALS: Ht 167.6 cm; Wt 95.3 kg
[~2019-10-18 11:31] MED LIST changes: +DOXYCYCLINE100 M3 PO
[2019-10-18 12:12] LABS: BASO % 0.2 % (0.0-1.0); EOS # 0.6 10*3/uL (0.0-0.4); HEMATOCRIT 39.5 % (42.0-52.0); HEMOGLOBIN 12.7 g/dl (14.0-18.0); LYMPH # 1.5 10*3/uL (1.3-4.4); LYMPH % 15.5 % (27.0-41.0); MEAN CELL VOLUME 84.4 fl (80.0-94.0); MEAN CORPUSCULAR HGB 27.1 pg (27.0-31.0); MEAN CORPUSCULAR HGB CONC 32.2 g/dl (33.0-37.0); MEAN PLATELET VOLUME 9.7 fl (9.6-12.3); MONO # 0.7 10*3/uL (0.1-1.0); MONO % 7.1 % (3.0-9.0); NEUT # 6.9 10*3/uL (2.3-7.9); NEUT % 70.8 % (47.0-73.0); PLATELET COUNT AUTOMATED 243 10*3/uL (130-400); RED BLOOD COUNT 4.68 10*6/uL (4.50-5.90); RED CELL DISTRI WIDTH 13.5 % (0-14.5); WHITE BLOOD COUNT 9.8 10*3/uL (4.8-10.8)
[2019-10-18 12:29] LABS: ALBUMIN 3.1 gm/dl (3.1-4.5); ALKALINE PHOSPHATASE 66 U/L (45-117); BUN 21 mg/dl (7-24); CHLORIDE 106 mmol/L (98-107); CREATININE 1.27 mg/dL (0.70-1.30); POTASSIUM 4.3 mmol/L (3.5-5.1); SGOT/AST 18 IU/L (3-35); SGPT/ALT 24 U/L (12-78); SODIUM 138 mmol/L (136-145); TOTAL PROTEIN 7.2 gm/dL (6.4-8.2)
[2019-10-18] MEDS ORDERED: MUCINEX1200 M1 PO (12:39)
== END 2019-10-18 12:47 | disposition home or self-care (01) ==
LOC: ED 11:31
PROVIDERS: Nurse Practitioner Family
DX: J18.9 Pneumonia, unspecified organism (principal); J45.909 Unspecified asthma, uncomplicated; G43.909 Migraine, unspecified, not intractable, without status migrainosus; I10 Essential (primary) hypertension; E11.9 Type 2 diabetes mellitus without complications; E66.9 Obesity, unspecified; Z88.0 Allergy status to penicillin; Z79.2 Long term (current) use of antibiotics; Z79.899 Other long term (current) drug therapy; Z79.4 Long term (current) use of insulin

== ENCOUNTER 2019-12-23 18:33 | Emergency (ER) | payer OTHER ==
[~2019-12-23] VITALS: Ht 167.6 cm; Wt 95.3 kg
[~2019-12-23 18:33] MED LIST changes: +MUCINEX1200 M1 PO
[2019-12-23 19:23] LABS: BILIRUBIN NEGATIVE (NEGATIVE); BLOOD 3+ (NEGATIVE); CLARITY SL CLOUDY (CLEAR); COLOR YELLOW (YELLOW); GLUCOSE NEGATIVE (NEGATIVE); KETONE NEGATIVE (NEGATIVE); NITRITE NEGATIVE (NEGATIVE); UROBILINOGEN 0.2 E.U./dl (0.2-1.0)
[2019-12-23 19:24] LABS: LEUKO ESTERASE NEGATIVE (NEGATIVE)
[2019-12-23 19:31] LABS: BACTERIA TRACE
[2019-12-23 19:38] LABS: BASO % 0.2 % (0.0-1.0); EOS # 0.4 10*3/uL (0.0-0.4); EOS % 3.8 % (1.0-4.0); HEMATOCRIT 36.9 % (42.0-52.0); LYMPH # 2.1 10*3/uL (1.3-4.4); LYMPH % 20.2 % (27.0-41.0); MEAN CELL VOLUME 85.6 fl (80.0-94.0); MEAN CORPUSCULAR HGB 27.6 pg (27.0-31.0); MEAN CORPUSCULAR HGB CONC 32.2 g/dl (33.0-37.0); MEAN PLATELET VOLUME 9.5 fl (9.6-12.3); MONO # 0.8 10*3/uL (0.1-1.0); MONO % 7.9 % (3.0-9.0); NEUT # 6.9 10*3/uL (2.3-7.9); NEUT % 67.5 % (47.0-73.0); PLATELET COUNT AUTOMATED 232 10*3/uL (130-400); RED BLOOD COUNT 4.31 10*6/uL (4.50-5.90); RED CELL DISTRI WIDTH 12.9 % (0-14.5); WHITE BLOOD COUNT 10.2 10*3/uL (4.8-10.8)
[2019-12-23 19:53] LABS: ALBUMIN 3.2 gm/dl (3.1-4.5); CREATININE 1.5 mg/dL (0.70-1.30); POTASSIUM 3.9 mmol/L (3.5-5.1); TOTAL PROTEIN 6.6 gm/dL (6.4-8.2)
== END 2019-12-23 22:23 | disposition home or self-care (01) ==
LOC: ED 18:33
PROVIDERS: Nurse Practitioner Family
DX: R31.9 Hematuria, unspecified (principal); J45.909 Unspecified asthma, uncomplicated; E11.9 Type 2 diabetes mellitus without complications; I10 Essential (primary) hypertension; Z79.899 Other long term (current) drug therapy; Z79.84 Long term (current) use of oral hypoglycemic drugs; Z79.4 Long term (current) use of insulin

== ENCOUNTER → 2019-12-30 | Outpatient (CLI) | payer OTHER | END | disposition home or self-care (01) | LOC: RESCLI 04:15 | DX: I12.9 Hypertensive chronic kidney disease with stage 1 through stage 4 chronic kidney disease, or unspecified chronic kidney disease (principal); E11.22 Type 2 diabetes mellitus with diabetic chronic kidney disease; N18.3 Chronic kidney disease, stage 3 (moderate); E55.9 Vitamin D deficiency, unspecified; N52.9 Male erectile dysfunction, unspecified; E78.5 Hyperlipidemia, unspecified; E66.09 Other obesity due to excess calories; J30.2 Other seasonal allergic rhinitis; Z88.0 Allergy status to penicillin; Z79.4 Long term (current) use of insulin; Z79.84 Long term (current) use of oral hypoglycemic drugs; Z79.899 Other long term (current) drug therapy ==

== ENCOUNTER → 2020-02-07 | Outpatient (CLI) | payer OTHER ==
[2020-02-07 16:47] LABS: BASO % 0.2 % (0.0-1.0); EOS # 0.3 10*3/uL (0.0-0.4); EOS % 3.4 % (1.0-4.0); HEMATOCRIT 39.5 % (42.0-52.0); LYMPH # 1.5 10*3/uL (1.3-4.4); LYMPH % 15.4 % (27.0-41.0); MEAN CELL VOLUME 83.7 fl (80.0-94.0); MEAN CORPUSCULAR HGB 26.3 pg (27.0-31.0); MEAN CORPUSCULAR HGB CONC 31.4 g/dl (33.0-37.0); MEAN PLATELET VOLUME 10.1 fl (9.6-12.3); MONO # 0.7 10*3/uL (0.1-1.0); MONO % 7.1 % (3.0-9.0); NEUT % 73.6 % (47.0-73.0); PLATELET COUNT AUTOMATED 225 10*3/uL (130-400); RED BLOOD COUNT 4.72 10*6/uL (4.50-5.90); RED CELL DISTRI WIDTH 13.2 % (0-14.5); WHITE BLOOD COUNT 9.5 10*3/uL (4.8-10.8)
== END | disposition home or self-care (01) ==
LOC: LAB 16:07
PROVIDERS: Internal Medicine Critical Care Medicine
DX: Z79.899 Other long term (current) drug therapy (principal)

== ENCOUNTER → 2020-04-04 | Outpatient (CLI) | payer OTHER | END | disposition home or self-care (01) | LOC: LAB 06:22 | PROVIDERS: ATTEND Student in an Organized Health Care Education/Training Program | DX: E11.22 Type 2 diabetes mellitus with diabetic chronic kidney disease (principal); N18.9 Chronic kidney disease, unspecified ==

== ENCOUNTER → 2020-04-10 | Outpatient (CLI) | payer OTHER | END | disposition home or self-care (01) | LOC: RESCLI 00:59 | PROVIDERS: ATTEND Internal Medicine | DX: E78.5 Hyperlipidemia, unspecified (principal); E55.9 Vitamin D deficiency, unspecified; E11.22 Type 2 diabetes mellitus with diabetic chronic kidney disease; I12.9 Hypertensive chronic kidney disease with stage 1 through stage 4 chronic kidney disease, or unspecified chronic kidney disease; N18.3 Chronic kidney disease, stage 3 (moderate); J45.40 Moderate persistent asthma, uncomplicated; J45.909 Unspecified asthma, uncomplicated; E66.9 Obesity, unspecified; J30.2 Other seasonal allergic rhinitis; Z79.4 Long term (current) use of insulin; Z79.899 Other long term (current) drug therapy; Z79.84 Long term (current) use of oral hypoglycemic drugs ==

== ENCOUNTER 2020-05-28 08:22 | Emergency (ER) | payer OTHER ==
[~2020-05-28] VITALS: Wt 99.8 kg
[2020-05-28] MEDS ORDERED: PROVENTIL HFA6.7 GM INH (10:20)
[2020-05-28] MEDS ORDERED: PREDNISONE20 M1 PO (10:20)
[2020-05-28] MEDS ORDERED: DOXYCYCLINE100 M3 PO (10:20)
== END 2020-05-28 10:35 | disposition home or self-care (01) ==
LOC: ED 08:22
DX: J18.9 Pneumonia, unspecified organism (principal); Z88.0 Allergy status to penicillin; Z79.899 Other long term (current) drug therapy

== ENCOUNTER → 2020-08-28 | Outpatient (CLI) | payer MEDICAID ==
[2020-08-28 10:25] LABS: CHOLESTEROL 223 mg/dL (<200); HDL CHOLESTEROL 31 mg/dl (40-60); LDL CHOLESTEROL 143 mg/dL (9-159); TRIGLYCERIDES 247 mg/dl (<150); VLDL CHOLESTEROL 49 mg/dL (6-40)
== END | disposition home or self-care (01) ==
LOC: LAB 09:30
PROVIDERS: ATTEND Student in an Organized Health Care Education/Training Program
DX: E11.22 Type 2 diabetes mellitus with diabetic chronic kidney disease (principal); N18.30 Chronic kidney disease, stage 3 unspecified; E78.5 Hyperlipidemia, unspecified

== ENCOUNTER → 2020-08-31 | Outpatient (CLI) | payer MEDICAID | END | disposition home or self-care (01) | LOC: RESCLI 04:10 | PROVIDERS: ATTEND Family Medicine | DX: J45.40 Moderate persistent asthma, uncomplicated (principal); I12.9 Hypertensive chronic kidney disease with stage 1 through stage 4 chronic kidney disease, or unspecified chronic kidney disease; E11.22 Type 2 diabetes mellitus with diabetic chronic kidney disease; N18.9 Chronic kidney disease, unspecified; E55.9 Vitamin D deficiency, unspecified; Z79.899 Other long term (current) drug therapy; Z88.0 Allergy status to penicillin ==

== ENCOUNTER → 2020-12-21 | Outpatient (CLI) | payer OTHER | END | disposition home or self-care (01) | LOC: RESCLI 03:30 | PROVIDERS: ATTEND Internal Medicine | DX: J45.909 Unspecified asthma, uncomplicated (principal); I12.9 Hypertensive chronic kidney disease with stage 1 through stage 4 chronic kidney disease, or unspecified chronic kidney disease; E11.22 Type 2 diabetes mellitus with diabetic chronic kidney disease; N18.30 Chronic kidney disease, stage 3 unspecified; Z23 Encounter for immunization; Z99.3 Dependence on wheelchair; Z98.890 Other specified postprocedural states; Z79.84 Long term (current) use of oral hypoglycemic drugs; Z88.0 Allergy status to penicillin ==

== ENCOUNTER → 2021-01-11 | Outpatient (CLI) | payer OTHER ==
[2021-01-11 10:25] LABS: BASO % 0.1 % (0.0-1.0); EOS # 0.4 10*3/uL (0.0-0.4); EOS % 5.4 % (1.0-4.0); HEMATOCRIT 39.5 % (42.0-52.0); LYMPH # 1.7 10*3/uL (1.3-4.4); LYMPH % 20.7 % (27.0-41.0); MEAN CELL VOLUME 88.6 fl (80.0-94.0); MEAN CORPUSCULAR HGB 27.6 pg (27.0-31.0); MEAN CORPUSCULAR HGB CONC 31.1 g/dl (33.0-37.0); MONO # 0.6 10*3/uL (0.1-1.0); MONO % 7.8 % (3.0-9.0); NEUT # 5.2 10*3/uL (2.3-7.9); NEUT % 65.7 % (47.0-73.0); PLATELET COUNT AUTOMATED 239 10*3/uL (130-400); RED BLOOD COUNT 4.46 10*6/uL (4.50-5.90)
[2021-01-11 10:31] LABS: BILIRUBIN Negative (Negative); BLOOD Trace-Lysed (Negative); CLARITY Clear (Clear); COLOR Yellow (Yellow); GLUCOSE Negative (Negative); KETONE Negative (Negative); LEUKO ESTERASE Negative (Negative); NITRITE Negative (Negative); UROBILINOGEN 0.2 E.U./dl (0.0-1.0)
[2021-01-11 10:44] LABS: ALBUMIN 3.2 gm/dl (3.1-4.5); CREATININE 1.79 mg/dL (0.70-1.30); POTASSIUM 5.2 mmol/L (3.5-5.1); TOTAL PROTEIN 7.3 gm/dL (6.4-8.2)
[2021-01-11 11:30] LABS: RBC 0-2 rbc/hpf (0-2)
[2021-01-12 09:07] LABS: CREATININE,URINE 191.1 mg/dL (Not Estab.)
== END | disposition home or self-care (01) ==
LOC: LAB 09:48
PROVIDERS: ATTEND Social Worker Clinical
DX: I12.9 Hypertensive chronic kidney disease with stage 1 through stage 4 chronic kidney disease, or unspecified chronic kidney disease (principal); E11.22 Type 2 diabetes mellitus with diabetic chronic kidney disease; N18.9 Chronic kidney disease, unspecified

== ENCOUNTER → 2021-01-15 | Outpatient (CLI) | payer OTHER | END | disposition home or self-care (01) | LOC: RESCLI 00:24 | PROVIDERS: ATTEND Student in an Organized Health Care Education/Training Program | DX: I12.9 Hypertensive chronic kidney disease with stage 1 through stage 4 chronic kidney disease, or unspecified chronic kidney disease (principal); E11.22 Type 2 diabetes mellitus with diabetic chronic kidney disease; N18.30 Chronic kidney disease, stage 3 unspecified; E55.9 Vitamin D deficiency, unspecified; E78.5 Hyperlipidemia, unspecified; J45.909 Unspecified asthma, uncomplicated; Z99.3 Dependence on wheelchair; Z79.82 Long term (current) use of aspirin; Z79.4 Long term (current) use of insulin; Z79.899 Other long term (current) drug therapy; Z88.0 Allergy status to penicillin ==

== ENCOUNTER → 2021-01-30 | Outpatient (CLI) | payer OTHER | END | disposition home or self-care (01) | LOC: MRI 10:30 | PROVIDERS: ATTEND Podiatrist | DX: S93.421A Sprain of deltoid ligament of right ankle, initial encounter (principal); S93.491A Sprain of other ligament of right ankle, initial encounter; S93.411A Sprain of calcaneofibular ligament of right ankle, initial encounter; S83.511A Sprain of anterior cruciate ligament of right knee, initial encounter; M72.2 Plantar fascial fibromatosis; M93.271 Osteochondritis dissecans, right ankle and joints of right foot; M25.471 Effusion, right ankle; M65.871 Other synovitis and tenosynovitis, right ankle and foot; M77.51 Other enthesopathy of right foot and ankle; X58.XXXA Exposure to other specified factors, initial encounter; Y93.89 Activity, other specified; Y92.89 Other specified places as the place of occurrence of the external cause; Y99.8 Other external cause status ==

== ENCOUNTER → 2021-02-18 | Outpatient (CLI) | payer OTHER ==
[2021-02-18 09:41] LABS: BASO % 0.1 % (0.0-1.0); EOS # 0.3 10*3/uL (0.0-0.4); EOS % 3.4 % (1.0-4.0); HEMATOCRIT 37.3 % (42.0-52.0); LYMPH # 1.5 10*3/uL (1.3-4.4); LYMPH % 17.1 % (27.0-41.0); MEAN CELL VOLUME 86.7 fl (80.0-94.0); MEAN CORPUSCULAR HGB 27.2 pg (27.0-31.0); MEAN CORPUSCULAR HGB CONC 31.4 g/dl (33.0-37.0); MONO # 0.6 10*3/uL (0.1-1.0); NEUT # 6.5 10*3/uL (2.3-7.9); NEUT % 71.8 % (47.0-73.0); PLATELET COUNT AUTOMATED 235 10*3/uL (130-400); RED CELL DISTRI WIDTH 13.1 % (0-14.5)
[2021-02-18 10:09] LABS: ALBUMIN 3.6 gm/dl (3.1-4.5); CREATININE 1.56 mg/dL (0.70-1.30); POTASSIUM 4.8 mmol/L (3.5-5.1)
[2021-02-18 10:10] LABS: TOTAL PROTEIN 7.4 gm/dL (6.4-8.2)
== END | disposition home or self-care (01) ==
LOC: LAB 08:57
PROVIDERS: ATTEND Orthopaedic Surgery Sports Medicine
DX: J98.11 Atelectasis (principal); I45.10 Unspecified right bundle-branch block; M25.371 Other instability, right ankle

== ENCOUNTER → 2021-02-26 | Outpatient (CLI) | payer OTHER | LOC: RESCLI 01:02 | PROVIDERS: ATTEND Student in an Organized Health Care Education/Training Program | DX: E11.22 Type 2 diabetes mellitus with diabetic chronic kidney disease (principal); I12.9 Hypertensive chronic kidney disease with stage 1 through stage 4 chronic kidney disease, or unspecified chronic kidney disease; N18.30 Chronic kidney disease, stage 3 unspecified; J30.2 Other seasonal allergic rhinitis; E55.9 Vitamin D deficiency, unspecified; E78.5 Hyperlipidemia, unspecified; N52.9 Male erectile dysfunction, unspecified; E66.09 Other obesity due to excess calories; J45.40 Moderate persistent asthma, uncomplicated; J45.909 Unspecified asthma, uncomplicated; Z99.3 Dependence on wheelchair; Z88.0 Allergy status to penicillin; Z79.82 Long term (current) use of aspirin; Z79.84 Long term (current) use of oral hypoglycemic drugs; Z79.899 Other long term (current) drug therapy ==

== ENCOUNTER 2021-05-03 18:36 | Inpatient (IN) | payer OTHER ==
[~2021-05-03] VITALS: Ht 167.6 cm; Wt 93.0 kg
[2021-05-03 20:01] VITALS: BP 139/63
[2021-05-03 21:33] LABS: BASO % 0.2 % (0.0-1.0); EOS # 0.2 10*3/uL (0.0-0.4); EOS % 3.9 % (1.0-4.0); HEMATOCRIT 32.7 % (42.0-52.0); LYMPH % 15.9 % (27.0-41.0); MEAN CELL VOLUME 91.1 fl (80.0-94.0); MEAN CORPUSCULAR HGB 28.1 pg (27.0-31.0); MEAN CORPUSCULAR HGB CONC 30.9 g/dl (33.0-37.0); MEAN PLATELET VOLUME 9.5 fl (9.6-12.3); MONO # 0.6 10*3/uL (0.1-1.0); MONO % 9.5 % (3.0-9.0); NEUT # 4.3 10*3/uL (2.3-7.9); NEUT % 69.7 % (47.0-73.0); PLATELET COUNT AUTOMATED 209 10*3/uL (130-400); RED BLOOD COUNT 3.59 10*6/uL (4.50-5.90); RED CELL DISTRI WIDTH 13.5 % (0-14.5); WHITE BLOOD COUNT 6.1 10*3/uL (4.8-10.8)
[2021-05-03 21:49] LABS: CREATININE 1.84 mg/dL (0.70-1.30); POTASSIUM 4.4 mmol/L (3.5-5.1); TOTAL PROTEIN 6.8 gm/dL (6.4-8.2)
[2021-05-03 21:50] LABS: TROPONIN I < 0.015 ng/ml (<0.045)
[2021-05-04 02:07] VITALS: BP 137/69
[2021-05-04] MEDS ORDERED: AMLODIPINE BESYL5 MG PO (04:20)
[2021-05-04] MEDS ORDERED: SPIRIVA RESPIMAT4 GM INH (04:20)
[2021-05-04] MEDS ORDERED: ATORVASTATIN CA40 M1 PO (04:21)
[2021-05-04] MEDS ORDERED: MONTELUKAST SOD10 MG PO (04:21)
[2021-05-04] MEDS ORDERED: ZESTORETIC 20-1 EACH PO (04:21)
[2021-05-04] MEDS ORDERED: JANUVIA50 MG PO (04:22)
[2021-05-04] MEDS ORDERED: METFORMIN HYD1000 MG PO (04:22)
[2021-05-04] MEDS ORDERED: LANTUS SOL100 UNIT/1 SC (04:23)
[2021-05-04 04:43] VITALS: BP 143/71
[2021-05-04 05:44] VITALS: BP 138/77
[2021-05-04 06:12] LABS: ALBUMIN 2.9 gm/dl (3.1-4.5); CREATININE 1.5 mg/dL (0.70-1.30); POTASSIUM 5.2 mmol/L (3.5-5.1); TOTAL PROTEIN 6.8 gm/dL (6.4-8.2)
[2021-05-04 06:25] LABS: HEMATOCRIT 32.5 % (42.0-52.0); MEAN CELL VOLUME 90.3 fl (80.0-94.0); MEAN CORPUSCULAR HGB 28.3 pg (27.0-31.0); MEAN CORPUSCULAR HGB CONC 31.4 g/dl (33.0-37.0); MEAN PLATELET VOLUME 10.2 fl (9.6-12.3); PLATELET COUNT AUTOMATED 203 10*3/uL (130-400); RED CELL DISTRI WIDTH 13.3 % (0-14.5); WHITE BLOOD COUNT 9.6 10*3/uL (4.8-10.8)
[2021-05-04 07:25] LABS: FERRITIN 349.9 ng/mL (22.0-322.0); VITAMIN D, 25-HYDROXY 13.7 ng/mL (30-100)
[2021-05-04 07:56] LABS: BURR CELLS FEW; PLATELET SUFFICIENCY NORMAL (NORMAL); TOTAL CELLS COUNTED 100 #CELLS
[2021-05-04] MEDS ORDERED: DOXYCYCLINE HY100 M3 PO (12:04)
[2021-05-04] MEDS ORDERED: PHARMASSURE V500 MCG PO (12:04)
[2021-05-04] MEDS ORDERED: DECADRON6 M1 PO (12:04)
[2021-05-04] MEDS ORDERED: VITAMIN D3125 MC1 PO (12:04)
[2021-05-04] MEDS ORDERED: PROTONIX40 MG PO (12:53)
== END 2021-05-04 16:50 | disposition home or self-care (01) | DRG 137 ==
LOC: ED 18:36 → EDHOLD 05-04 02:15
PROVIDERS: Hospitalist; ADMIT Family Medicine; ATTEND Family Medicine
PROC: XW033E5 Introduction of Remdesivir Anti-infective into Peripheral Vein, Percutaneous Approach, New Technology Group 5 (ICD-10-PCS; principal; 2021-05-04)
DX: U07.1 COVID-19 (principal); J96.01 Acute respiratory failure with hypoxia; J12.82 Pneumonia due to coronavirus disease 2019; I13.10 Hypertensive heart and chronic kidney disease without heart failure, with stage 1 through stage 4 chronic kidney disease, or unspecified chronic kidney disease; E11.22 Type 2 diabetes mellitus with diabetic chronic kidney disease; J45.909 Unspecified asthma, uncomplicated; D64.9 Anemia, unspecified; N18.32 Chronic kidney disease, stage 3b; E11.65 Type 2 diabetes mellitus with hyperglycemia; E46 Unspecified protein-calorie malnutrition; Z20.822 Contact with and (suspected) exposure to COVID-19; Z82.49 Family history of ischemic heart disease and other diseases of the circulatory system; Z83.3 Family history of diabetes mellitus; Z88.0 Allergy status to penicillin; Z79.51 Long term (current) use of inhaled steroids; Z79.899 Other long term (current) drug therapy; Z79.4 Long term (current) use of insulin; N17.0 Acute kidney failure with tubular necrosis; E44.0 Moderate protein-calorie malnutrition

== ENCOUNTER → 2021-06-09 | Outpatient (CLI) | payer OTHER ==
[~2021-06-09] MED LIST changes: +AMLODIPINE BESYL5 MG PO; +ATORVASTATIN CA40 M1 PO; +DECADRON6 M1 PO; +DOXYCYCLINE HY100 M3 PO; +JANUVIA50 MG PO; +LANTUS SOL100 UNIT/1 SC; +METFORMIN HYD1000 MG PO; +MONTELUKAST SOD10 MG PO; +PHARMASSURE V500 MCG PO; +PROTONIX40 MG PO; +SPIRIVA RESPIMAT4 GM INH; +VITAMIN D3125 MC1 PO
[2021-06-09 11:15] LABS: BASO % 0.3 % (0.0-1.0); EOS # 0.3 10*3/uL (0.0-0.4); EOS % 3.2 % (1.0-4.0); HEMATOCRIT 32.5 % (42.0-52.0); LYMPH # 1.6 10*3/uL (1.3-4.4); LYMPH % 17.6 % (27.0-41.0); MEAN CELL VOLUME 88.3 fl (80.0-94.0); MEAN CORPUSCULAR HGB CONC 31.7 g/dl (33.0-37.0); MEAN PLATELET VOLUME 9.7 fl (9.6-12.3); MONO # 0.7 10*3/uL (0.1-1.0); MONO % 8.2 % (3.0-9.0); NEUT # 6.2 10*3/uL (2.3-7.9); NEUT % 70.1 % (47.0-73.0); PLATELET COUNT AUTOMATED 278 10*3/uL (130-400); RED BLOOD COUNT 3.68 10*6/uL (4.50-5.90); RED CELL DISTRI WIDTH 13.2 % (0-14.5); WHITE BLOOD COUNT 8.9 10*3/uL (4.8-10.8)
[2021-06-09 11:35] LABS: ALBUMIN 2.9 gm/dl (3.1-4.5); ALKALINE PHOSPHATASE 71 U/L (45-117); BUN 23 mg/dl (7-24); CHLORIDE 107 mmol/L (98-107); POTASSIUM 4.4 mmol/L (3.5-5.1); SGOT/AST 16 IU/L (3-35); SGPT/ALT 27 U/L (12-78); SODIUM 140 mmol/L (136-145); TOTAL PROTEIN 7.3 gm/dL (6.4-8.2)
== END | disposition home or self-care (01) ==
LOC: LAB 10:27
PROVIDERS: ATTEND Student in an Organized Health Care Education/Training Program
DX: E11.22 Type 2 diabetes mellitus with diabetic chronic kidney disease (principal); N18.30 Chronic kidney disease, stage 3 unspecified

== ENCOUNTER → 2021-06-12 | Outpatient (CLI) | payer OTHER ==
[2021-06-12 11:24] LABS: CHOLESTEROL 158 mg/dL (<200); LDL CHOLESTEROL 99 mg/dL (9-159); TRIGLYCERIDES 121 mg/dl (<150)
== END | disposition home or self-care (01) ==
LOC: RESCLI
PROVIDERS: Internal Medicine; ATTEND Student in an Organized Health Care Education/Training Program
DX: E11.9 Type 2 diabetes mellitus without complications (principal); I10 Essential (primary) hypertension; E55.9 Vitamin D deficiency, unspecified; E78.5 Hyperlipidemia, unspecified; J45.40 Moderate persistent asthma, uncomplicated; J30.2 Other seasonal allergic rhinitis; Z79.82 Long term (current) use of aspirin; Z79.84 Long term (current) use of oral hypoglycemic drugs; Z79.899 Other long term (current) drug therapy; Z88.0 Allergy status to penicillin

== ENCOUNTER → 2021-09-20 | Outpatient (CLI) | payer OTHER ==
[~2021-09-20] MED LIST changes: +VIBRAMYCIN100 MG PO
== END | disposition home or self-care (01) ==
LOC: RESCLI 00:33
PROVIDERS: ATTEND Student in an Organized Health Care Education/Training Program
DX: Z23 Encounter for immunization (principal); R06.02 Shortness of breath; R06.2 Wheezing; I12.9 Hypertensive chronic kidney disease with stage 1 through stage 4 chronic kidney disease, or unspecified chronic kidney disease; E11.22 Type 2 diabetes mellitus with diabetic chronic kidney disease; N18.9 Chronic kidney disease, unspecified; J45.40 Moderate persistent asthma, uncomplicated; E11.9 Type 2 diabetes mellitus without complications; E78.5 Hyperlipidemia, unspecified; N52.9 Male erectile dysfunction, unspecified; D64.9 Anemia, unspecified; E11.65 Type 2 diabetes mellitus with hyperglycemia; Z88.0 Allergy status to penicillin; Z79.82 Long term (current) use of aspirin; Z79.84 Long term (current) use of oral hypoglycemic drugs; Z79.899 Other long term (current) drug therapy

== ENCOUNTER 2021-09-30 12:23 | Emergency (ER) | payer OTHER ==
[~2021-09-30] VITALS: Ht 167.6 cm; Wt 97.5 kg
[~2021-09-30 12:23] MED LIST changes: -VIBRAMYCIN100 MG PO
[2021-09-30] MEDS ORDERED: VIBRAMYCIN100 MG PO (15:42)
[2021-09-30] MEDS ORDERED: PROVENTIL HFA6.7 GM INH (15:42)
[2021-09-30] MEDS ORDERED: PREDNISONE20 M1 PO (15:42)
== END 2021-09-30 16:07 | disposition home or self-care (01) ==
LOC: ED 12:23
DX: J18.9 Pneumonia, unspecified organism (principal); Z20.822 Contact with and (suspected) exposure to COVID-19; Z88.0 Allergy status to penicillin; Z79.899 Other long term (current) drug therapy

== ENCOUNTER 2021-10-16 16:14 | Emergency (ER) | payer OTHER ==
[~2021-10-16 16:14] MED LIST changes: +VIBRAMYCIN100 MG PO
== END 2021-10-16 18:53 | disposition home or self-care (01) ==
LOC: ED 16:14
DX: S93.401A Sprain of unspecified ligament of right ankle, initial encounter (principal); Z88.0 Allergy status to penicillin; Z79.899 Other long term (current) drug therapy; X50.1XXA Overexertion from prolonged static or awkward postures, initial encounter; Y93.89 Activity, other specified; Y92.89 Other specified places as the place of occurrence of the external cause; Y99.8 Other external cause status

== ENCOUNTER → 2021-12-16 | Outpatient (CLI) | payer OTHER ==
[2021-12-16 10:27] LABS: BASO % 0.1 % (0.0-1.0); EOS # 0.5 10*3/uL (0.0-0.4); EOS % 4.8 % (1.0-4.0); LYMPH # 1.8 10*3/uL (1.3-4.4); MEAN CELL VOLUME 85.2 fl (80.0-94.0); MEAN CORPUSCULAR HGB CONC 32.9 g/dl (33.0-37.0); MEAN PLATELET VOLUME 9.6 fl (9.6-12.3); MONO # 0.7 10*3/uL (0.1-1.0); MONO % 7.4 % (3.0-9.0); NEUT # 6.8 10*3/uL (2.3-7.9); NEUT % 69.3 % (47.0-73.0); PLATELET COUNT AUTOMATED 231 10*3/uL (130-400); RED BLOOD COUNT 4.11 10*6/uL (4.50-5.90); RED CELL DISTRI WIDTH 13.8 % (0-14.5); WHITE BLOOD COUNT 9.8 10*3/uL (4.8-10.8)
[2021-12-16 10:52] LABS: CREATININE 1.83 mg/dL (0.70-1.30)
[2021-12-16 10:54] LABS: TOTAL PROTEIN 6.9 gm/dL (6.4-8.2)
[2021-12-17 08:09] LABS: HEPATITIS B SURFACE AG Negative (Negative)
== END | disposition home or self-care (01) ==
LOC: LAB 10:13
PROVIDERS: ATTEND Internal Medicine
DX: E11.9 Type 2 diabetes mellitus without complications (principal); D64.9 Anemia, unspecified

== ENCOUNTER → 2021-12-20 | Outpatient (CLI) | payer OTHER | END | disposition home or self-care (01) | LOC: RESCLI 02:01 | PROVIDERS: ATTEND Internal Medicine | DX: E11.9 Type 2 diabetes mellitus without complications (principal); I10 Essential (primary) hypertension; J45.40 Moderate persistent asthma, uncomplicated; J45.909 Unspecified asthma, uncomplicated; J30.2 Other seasonal allergic rhinitis; E78.5 Hyperlipidemia, unspecified; Z79.899 Other long term (current) drug therapy; Z79.82 Long term (current) use of aspirin; Z88.0 Allergy status to penicillin ==

== ENCOUNTER 2022-01-20 14:35 | Emergency (ER) | payer OTHER | END 2022-01-20 16:42 | disposition home or self-care (01) | LOC: ED 14:35 | DX: S93.402A Sprain of unspecified ligament of left ankle, initial encounter (principal); X50.1XXA Overexertion from prolonged static or awkward postures, initial encounter; Y93.89 Activity, other specified; Y92.89 Other specified places as the place of occurrence of the external cause; Y99.8 Other external cause status ==

== ENCOUNTER 2022-02-24 10:57 | Emergency (ER) | payer OTHER ==
[~2022-02-24] VITALS: Ht 167.6 cm; Wt 97.5 kg
[2022-02-24] MEDS ORDERED: VIBRAMYCIN100 MG PO (11:29)
[2022-02-24] MEDS ORDERED: ATHLETE'S FOO35.4 GM T (11:29)
== END 2022-02-24 11:44 | disposition home or self-care (01) ==
LOC: ED 10:57
DX: R21 Rash and other nonspecific skin eruption (principal); E11.9 Type 2 diabetes mellitus without complications; Z88.0 Allergy status to penicillin; Z79.899 Other long term (current) drug therapy; Z79.2 Long term (current) use of antibiotics; Z79.4 Long term (current) use of insulin; Z98.890 Other specified postprocedural states

== ENCOUNTER → 2022-02-27 | Outpatient (CLI) | payer OTHER ==
[~2022-02-27] MED LIST changes: +ATHLETE'S FOO35.4 GM T
== END | disposition home or self-care (01) ==
LOC: RESCLI 12:38
PROVIDERS: ATTEND Internal Medicine
DX: B35.3 Tinea pedis (principal); E11.9 Type 2 diabetes mellitus without complications; E78.5 Hyperlipidemia, unspecified; I10 Essential (primary) hypertension; J45.909 Unspecified asthma, uncomplicated; Z79.899 Other long term (current) drug therapy; Z79.82 Long term (current) use of aspirin; Z79.01 Long term (current) use of anticoagulants

== ENCOUNTER → 2022-03-24 | Outpatient (CLI) | payer OTHER ==
[2022-03-24 10:54] LABS: CHOLESTEROL 149 mg/dL (<200); LDL CHOLESTEROL 71 mg/dL (9-159); TRIGLYCERIDES 239 mg/dl (<150)
== END ==
LOC: LAB 09:46
PROVIDERS: ATTEND Internal Medicine
DX: E11.9 Type 2 diabetes mellitus without complications (principal)

== ENCOUNTER → 2022-04-03 | Outpatient (CLI) | payer OTHER | END | disposition home or self-care (01) | LOC: RESCLI 00:08 | PROVIDERS: ATTEND Family Medicine | DX: I12.9 Hypertensive chronic kidney disease with stage 1 through stage 4 chronic kidney disease, or unspecified chronic kidney disease (principal); E11.22 Type 2 diabetes mellitus with diabetic chronic kidney disease; E11.65 Type 2 diabetes mellitus with hyperglycemia; L03.019 Cellulitis of unspecified finger; B35.3 Tinea pedis; J45.909 Unspecified asthma, uncomplicated; N18.30 Chronic kidney disease, stage 3 unspecified; E78.5 Hyperlipidemia, unspecified; Z79.899 Other long term (current) drug therapy; Z88.0 Allergy status to penicillin; Z79.82 Long term (current) use of aspirin; Z79.01 Long term (current) use of anticoagulants; Z79.4 Long term (current) use of insulin ==

== ENCOUNTER → 2022-04-25 | Outpatient (CLI) | payer OTHER | END | disposition home or self-care (01) | LOC: RAD 09:36 | PROVIDERS: ATTEND Orthopaedic Surgery | DX: S93.422A Sprain of deltoid ligament of left ankle, initial encounter (principal); X58.XXXA Exposure to other specified factors, initial encounter; Y93.89 Activity, other specified; Y92.89 Other specified places as the place of occurrence of the external cause; Y99.8 Other external cause status ==

== ENCOUNTER → 2022-08-05 | Outpatient (CLI) | payer OTHER | END | disposition home or self-care (01) | LOC: RESCLI 02:54 | PROVIDERS: ATTEND Internal Medicine | DX: E11.65 Type 2 diabetes mellitus with hyperglycemia (principal); L03.019 Cellulitis of unspecified finger; J45.909 Unspecified asthma, uncomplicated; B35.3 Tinea pedis; I10 Essential (primary) hypertension; E78.5 Hyperlipidemia, unspecified; Z88.0 Allergy status to penicillin; Z88.8 Allergy status to other drugs, medicaments and biological substances; Z82.49 Family history of ischemic heart disease and other diseases of the circulatory system; Z98.890 Other specified postprocedural states; Z79.84 Long term (current) use of oral hypoglycemic drugs; Z79.899 Other long term (current) drug therapy ==

== ENCOUNTER 2022-09-03 21:04 | Emergency (ER) | payer BC ==
[~2022-09-03] VITALS: Ht 167.6 cm; Wt 97.5 kg
[2022-09-03 22:13] LABS: BASO % 0.2 % (0.0-1.0); EOS # 0.3 10*3/uL (0.0-0.4); EOS % 2.7 % (1.0-4.0); HEMATOCRIT 35.8 % (42.0-52.0); LYMPH # 1.7 10*3/uL (1.3-4.4); LYMPH % 15.3 % (27.0-41.0); MEAN CELL VOLUME 86.1 fl (80.0-94.0); MEAN CORPUSCULAR HGB 27.6 pg (27.0-31.0); MEAN CORPUSCULAR HGB CONC 32.1 g/dl (33.0-37.0); MEAN PLATELET VOLUME 10.4 fl (9.6-12.3); MONO # 0.7 10*3/uL (0.1-1.0); MONO % 6.2 % (3.0-9.0); NEUT # 8.2 10*3/uL (2.3-7.9); NEUT % 75.1 % (47.0-73.0); PLATELET COUNT AUTOMATED 203 10*3/uL (130-400); RED BLOOD COUNT 4.16 10*6/uL (4.50-5.90); RED CELL DISTRI WIDTH 13.2 % (0-14.5); WHITE BLOOD COUNT 10.9 10*3/uL (4.8-10.8)
[2022-09-03 22:21] LABS: BILIRUBIN Negative (Negative); BLOOD Negative (Negative); CLARITY Clear (Clear); COLOR Yellow (Yellow); GLUCOSE 3+ (Negative); KETONE Trace (Negative); LEUKO ESTERASE Negative (Negative); NITRITE Negative (Negative); SPECIFIC GRAVITY >= 1.030 (1.001-1.030)
[2022-09-03 22:29] LABS: POTASSIUM 4.8 mmol/L (3.4-5.1); TOTAL PROTEIN 6.7 gm/dL (6.0-8.0)
[2022-09-03 22:37] LABS: BACTERIA TRACE
[2022-09-03] MEDS ORDERED: FAMCICLOVIR500 MG PO (23:33)
[2022-09-03] MEDS ORDERED: PREDNISONE20 M1 PO (23:33)
== END 2022-09-03 23:39 | disposition home or self-care (01) ==
LOC: ED 21:04
PROVIDERS: Physician Assistant
DX: R10.9 Unspecified abdominal pain (principal); B02.9 Zoster without complications; Z88.0 Allergy status to penicillin; Z79.899 Other long term (current) drug therapy

== ENCOUNTER → 2022-10-01 | Outpatient (CLI) | payer BC ==
[~2022-10-01] MED LIST changes: +FAMCICLOVIR500 MG PO
== END | disposition home or self-care (01) ==
LOC: ORTHO 00:35
PROVIDERS: ATTEND Orthopaedic Surgery
DX: M77.52 Other enthesopathy of left foot and ankle (principal); M25.572 Pain in left ankle and joints of left foot

== ENCOUNTER → 2022-11-06 | Outpatient (CLI) | payer MEDICAID | END | disposition home or self-care (01) | LOC: RESCLI 00:53 | PROVIDERS: ATTEND Emergency Medicine | DX: E11.65 Type 2 diabetes mellitus with hyperglycemia (principal); J45.909 Unspecified asthma, uncomplicated; I10 Essential (primary) hypertension; B02.29 Other postherpetic nervous system involvement; E78.5 Hyperlipidemia, unspecified; Z88.0 Allergy status to penicillin; Z79.84 Long term (current) use of oral hypoglycemic drugs; Z98.890 Other specified postprocedural states; Z79.899 Other long term (current) drug therapy ==

== ENCOUNTER → 2023-01-09 | Outpatient (CLI) | payer OTHER ==
[~2023-01-09] MED LIST changes: +AMLODIPINE BESY10 MG PO; +DOXYCYCLINE MO100 MG PO; +MUCUS RELIEF600 MG PO; +VICTOZA 3-0.6 MG/0.1 SQ
== END | disposition home or self-care (01) ==
LOC: RESCLI 00:58
PROVIDERS: ATTEND Internal Medicine
DX: E11.65 Type 2 diabetes mellitus with hyperglycemia (principal); E78.5 Hyperlipidemia, unspecified; E55.9 Vitamin D deficiency, unspecified; J45.909 Unspecified asthma, uncomplicated; J45.901 Unspecified asthma with (acute) exacerbation; K21.9 Gastro-esophageal reflux disease without esophagitis; B02.29 Other postherpetic nervous system involvement; Z88.0 Allergy status to penicillin; I12.9 Hypertensive chronic kidney disease with stage 1 through stage 4 chronic kidney disease, or unspecified chronic kidney disease; N18.30 Chronic kidney disease, stage 3 unspecified; E11.22 Type 2 diabetes mellitus with diabetic chronic kidney disease; Z86.16 Personal history of COVID-19; Z79.4 Long term (current) use of insulin; Z79.899 Other long term (current) drug therapy; Z79.84 Long term (current) use of oral hypoglycemic drugs

== ENCOUNTER → 2023-01-30 | Outpatient (CLI) | payer OTHER | END | disposition home or self-care (01) | LOC: ORTHO 00:27 | PROVIDERS: ATTEND Orthopaedic Surgery | DX: M77.31 Calcaneal spur, right foot (principal); M25.471 Effusion, right ankle ==

== ENCOUNTER → 2023-04-10 | Outpatient (CLI) | payer OTHER | END | disposition home or self-care (01) | LOC: RESCLI 00:30 | PROVIDERS: ATTEND Internal Medicine | DX: E11.65 Type 2 diabetes mellitus with hyperglycemia (principal); J45.909 Unspecified asthma, uncomplicated; E55.9 Vitamin D deficiency, unspecified; K21.9 Gastro-esophageal reflux disease without esophagitis; B02.9 Zoster without complications; I10 Essential (primary) hypertension; E78.5 Hyperlipidemia, unspecified; Z88.0 Allergy status to penicillin; Z98.890 Other specified postprocedural states; Z82.49 Family history of ischemic heart disease and other diseases of the circulatory system; Z79.899 Other long term (current) drug therapy ==

== ENCOUNTER 2023-05-06 17:21 | Emergency (ER) | payer OTHER ==
[~2023-05-06] VITALS: Ht 167.6 cm; Wt 93.0 kg
[2023-05-06] MEDS ORDERED: NAPROXEN250 MG PO (20:26)
== END 2023-05-06 20:50 | disposition home or self-care (01) ==
LOC: ED 17:21
DX: S90.02XA Contusion of left ankle, initial encounter (principal); I10 Essential (primary) hypertension; E11.9 Type 2 diabetes mellitus without complications; J44.9 Chronic obstructive pulmonary disease, unspecified; Z88.0 Allergy status to penicillin; Z98.890 Other specified postprocedural states; W01.0XXA Fall on same level from slipping, tripping and stumbling without subsequent striking against object, initial encounter; Y93.89 Activity, other specified; Y92.009 Unspecified place in unspecified non-institutional (private) residence as the place of occurrence of the external cause; Y99.8 Other external cause status

== ENCOUNTER → 2023-06-05 | Outpatient (CLI) | payer OTHER ==
[~2023-06-05] MED LIST changes: +NAPROXEN250 MG PO
[2023-06-05 09:46] LABS: CHOLESTEROL 164 mg/dL (<200); LDL CHOLESTEROL 96 mg/dL (9-159); TRIGLYCERIDES 173 mg/dl (<150)
== END | disposition home or self-care (01) ==
LOC: LAB 09:07
PROVIDERS: ATTEND Internal Medicine
DX: E11.65 Type 2 diabetes mellitus with hyperglycemia (principal); E78.5 Hyperlipidemia, unspecified

== ENCOUNTER → 2023-07-01 | Outpatient (CLI) | payer OTHER ==
[2023-07-01 14:10] LABS: BASO % 0.3 % (0.0-1.0); EOS # 0.4 10*3/uL (0.0-0.4); EOS % 4.3 % (1.0-4.0); HEMATOCRIT 34.7 % (42.0-52.0); LYMPH % 9.6 % (27.0-41.0); MEAN CELL VOLUME 87.8 fl (80.0-94.0); MEAN CORPUSCULAR HGB 27.8 pg (27.0-31.0); MEAN CORPUSCULAR HGB CONC 31.7 g/dl (33.0-37.0); MEAN PLATELET VOLUME 9.4 fl (9.6-12.3); MONO # 0.9 10*3/uL (0.1-1.0); MONO % 8.5 % (3.0-9.0); NEUT # 7.8 10*3/uL (2.3-7.9); NEUT % 77.1 % (47.0-73.0); PLATELET COUNT AUTOMATED 204 10*3/uL (130-400); RED BLOOD COUNT 3.95 10*6/uL (4.50-5.90); RED CELL DISTRI WIDTH 12.6 % (0-14.5); WHITE BLOOD COUNT 10.1 10*3/uL (4.8-10.8)
[2023-07-01 14:30] LABS: POTASSIUM 4.8 mmol/L (3.4-5.1)
== END | disposition home or self-care (01) ==
LOC: LAB 13:36
PROVIDERS: ATTEND Nurse Practitioner Family
DX: J44.9 Chronic obstructive pulmonary disease, unspecified (principal); J45.909 Unspecified asthma, uncomplicated; R91.8 Other nonspecific abnormal finding of lung field; J18.9 Pneumonia, unspecified organism; Z92.89 Personal history of other medical treatment

== ENCOUNTER → 2023-07-08 | Outpatient (CLI) | payer OTHER | END | disposition home or self-care (01) | LOC: RESCLI 01:19 | PROVIDERS: ATTEND Family Medicine | DX: J45.909 Unspecified asthma, uncomplicated (principal); E78.5 Hyperlipidemia, unspecified; K21.9 Gastro-esophageal reflux disease without esophagitis; E11.22 Type 2 diabetes mellitus with diabetic chronic kidney disease; E11.65 Type 2 diabetes mellitus with hyperglycemia; I12.9 Hypertensive chronic kidney disease with stage 1 through stage 4 chronic kidney disease, or unspecified chronic kidney disease; N18.30 Chronic kidney disease, stage 3 unspecified; Z79.899 Other long term (current) drug therapy; Z79.4 Long term (current) use of insulin; Z88.0 Allergy status to penicillin; Z86.16 Personal history of COVID-19 ==

== ENCOUNTER → 2023-07-28 | Outpatient (CLI) | payer OTHER ==
[2023-07-28 12:39] LABS: URINE CREATININE RANDOM 125.51 mg/dL
== END | disposition home or self-care (01) ==
LOC: LAB 11:40
PROVIDERS: ATTEND Internal Medicine
DX: E11.65 Type 2 diabetes mellitus with hyperglycemia (principal)

== ENCOUNTER → 2023-09-04 | Outpatient (CLI) | payer OTHER | END | disposition home or self-care (01) | LOC: LAB 13:09 | PROVIDERS: ATTEND Internal Medicine | DX: E11.65 Type 2 diabetes mellitus with hyperglycemia (principal) ==

== ENCOUNTER → 2023-09-10 | Outpatient (CLI) | payer OTHER, MEDICAID ==
[2023-09-10 14:53] LABS: POTASSIUM 4.9 mmol/L (3.4-5.1)
== END | disposition home or self-care (01) ==
LOC: RESCLI 01:50
PROVIDERS: Internal Medicine; ATTEND Internal Medicine
DX: E11.65 Type 2 diabetes mellitus with hyperglycemia (principal); I10 Essential (primary) hypertension; K21.9 Gastro-esophageal reflux disease without esophagitis; J45.909 Unspecified asthma, uncomplicated; E78.5 Hyperlipidemia, unspecified; Z86.16 Personal history of COVID-19; Z88.0 Allergy status to penicillin; Z82.49 Family history of ischemic heart disease and other diseases of the circulatory system; Z98.890 Other specified postprocedural states; Z79.899 Other long term (current) drug therapy; Z79.84 Long term (current) use of oral hypoglycemic drugs

== ENCOUNTER → 2023-09-18 | Outpatient (CLI) | payer OTHER, MEDICAID | END | disposition home or self-care (01) | LOC: ORTHO 09:20 → RAD 09:20 | PROVIDERS: ATTEND Orthopaedic Surgery | DX: M77.32 Calcaneal spur, left foot (principal) ==

== ENCOUNTER → 2023-10-19 | Outpatient (CLI) | payer OTHER, MEDICAID ==
[~2023-10-19] MED LIST changes: +DULERA 200 MCG-13 GM INH; +JARDIANCE10 MG PO; +TAMIFLU30 MG PO
== END | disposition home or self-care (01) ==
LOC: ORTHO 00:35
PROVIDERS: ATTEND Orthopaedic Surgery
DX: S93.432D Sprain of tibiofibular ligament of left ankle, subsequent encounter (principal); M77.52 Other enthesopathy of left foot and ankle; X58.XXXD Exposure to other specified factors, subsequent encounter

== ENCOUNTER → 2023-11-19 | Outpatient (CLI) | payer OTHER, MEDICAID | END | disposition home or self-care (01) | LOC: RESCLI 00:50 | PROVIDERS: ATTEND Internal Medicine | DX: S93.432A Sprain of tibiofibular ligament of left ankle, initial encounter (principal); I10 Essential (primary) hypertension; E11.9 Type 2 diabetes mellitus without complications; E78.5 Hyperlipidemia, unspecified; J45.909 Unspecified asthma, uncomplicated; Z79.899 Other long term (current) drug therapy; X58.XXXA Exposure to other specified factors, initial encounter; Y93.89 Activity, other specified; Y92.89 Other specified places as the place of occurrence of the external cause; Y99.8 Other external cause status ==

== ENCOUNTER → 2024-01-16 | Outpatient (CLI) | payer OTHER, MEDICAID ==
[2024-01-16 09:27] LABS: ALKALINE PHOSPHATASE 141 U/L (46-116); BUN 23 mg/dl (9-23); CHLORIDE 109 mmol/L (98-107); POTASSIUM 3.9 mmol/L (3.4-5.1); SGPT/ALT 91 U/L (5-49); TOTAL PROTEIN 6.7 gm/dL (6.0-8.0)
== END | disposition home or self-care (01) ==
LOC: LAB 09:00
PROVIDERS: Student in an Organized Health Care Education/Training Program; ATTEND Registered Nurse
DX: I10 Essential (primary) hypertension (principal); J45.909 Unspecified asthma, uncomplicated; E11.9 Type 2 diabetes mellitus without complications

== ENCOUNTER → 2024-01-21 | Outpatient (CLI) | payer OTHER, MEDICAID | END | disposition home or self-care (01) | LOC: RESCLI 02:42 | PROVIDERS: ATTEND Internal Medicine | DX: I12.9 Hypertensive chronic kidney disease with stage 1 through stage 4 chronic kidney disease, or unspecified chronic kidney disease (principal); E11.22 Type 2 diabetes mellitus with diabetic chronic kidney disease; N18.30 Chronic kidney disease, stage 3 unspecified; E11.65 Type 2 diabetes mellitus with hyperglycemia; E78.5 Hyperlipidemia, unspecified; G43.909 Migraine, unspecified, not intractable, without status migrainosus; J45.909 Unspecified asthma, uncomplicated; M10.9 Gout, unspecified; E66.01 Morbid (severe) obesity due to excess calories; Z68.33 Body mass index [BMI] 33.0-33.9, adult; Z86.16 Personal history of COVID-19; Z79.4 Long term (current) use of insulin; Z79.899 Other long term (current) drug therapy; Z98.890 Other specified postprocedural states; Z82.49 Family history of ischemic heart disease and other diseases of the circulatory system; Z83.3 Family history of diabetes mellitus; Z88.0 Allergy status to penicillin ==

== ENCOUNTER → 2024-02-24 | Outpatient (CLI) | payer OTHER, MEDICAID ==
[~2024-02-24] MED LIST changes: +hydrALAZINE hydrochloride 25 MG TAB PO ONE
== END | disposition home or self-care (01) ==
LOC: RESCLI 02:40
PROVIDERS: ATTEND Internal Medicine
DX: I12.9 Hypertensive chronic kidney disease with stage 1 through stage 4 chronic kidney disease, or unspecified chronic kidney disease (principal); E11.22 Type 2 diabetes mellitus with diabetic chronic kidney disease; N18.30 Chronic kidney disease, stage 3 unspecified; J45.909 Unspecified asthma, uncomplicated; E78.5 Hyperlipidemia, unspecified; E11.65 Type 2 diabetes mellitus with hyperglycemia; E55.9 Vitamin D deficiency, unspecified; K21.9 Gastro-esophageal reflux disease without esophagitis; M10.9 Gout, unspecified; Z88.0 Allergy status to penicillin; Z86.16 Personal history of COVID-19; Z98.890 Other specified postprocedural states; Z82.49 Family history of ischemic heart disease and other diseases of the circulatory system; Z79.899 Other long term (current) drug therapy

== ENCOUNTER → 2024-03-17 | Outpatient (CLI) | payer OTHER, MEDICAID ==
[~2024-03-17] MED LIST changes: -hydrALAZINE hydrochloride 25 MG TAB PO ONE
[2024-03-17 08:57] LABS: BASO % 0.3 % (0.0-1.0); EOS # 0.5 10*3/uL (0.0-0.4); HEMATOCRIT 41.8 % (42.0-52.0); LYMPH # 2.6 10*3/uL (1.3-4.4); LYMPH % 26.4 % (27.0-41.0); MEAN CELL VOLUME 86.4 fl (80.0-94.0); MEAN CORPUSCULAR HGB 26.7 pg (27.0-31.0); MEAN CORPUSCULAR HGB CONC 30.9 g/dl (33.0-37.0); MONO # 0.9 10*3/uL (0.1-1.0); MONO % 8.7 % (3.0-9.0); NEUT # 5.8 10*3/uL (2.3-7.9); NEUT % 59.2 % (47.0-73.0); PLATELET COUNT AUTOMATED 244 10*3/uL (130-400); RED BLOOD COUNT 4.84 10*6/uL (4.50-5.90); RED CELL DISTRI WIDTH 14.1 % (0-14.5); WHITE BLOOD COUNT 9.8 10*3/uL (4.8-10.8)
[2024-03-17 09:10] LABS: URINE CREATININE RANDOM 176.18 mg/dL
[2024-03-17 09:30] LABS: POTASSIUM 4.1 mmol/L (3.4-5.1)
== END | disposition home or self-care (01) ==
LOC: LAB 08:25
PROVIDERS: Student in an Organized Health Care Education/Training Program; ATTEND Internal Medicine
DX: E11.65 Type 2 diabetes mellitus with hyperglycemia (principal)

== ENCOUNTER → 2024-05-25 | Outpatient (CLI) | payer OTHER, MEDICAID | END | disposition home or self-care (01) | LOC: ORTHO 03:30 | PROVIDERS: ATTEND Orthopaedic Surgery | DX: M25.572 Pain in left ankle and joints of left foot (principal) ==

== ENCOUNTER 2024-09-11 15:47 | Emergency (ER) | payer OTHER, MEDICAID ==
[~2024-09-11] VITALS: Ht 167.6 cm; Wt 97.5 kg
[~2024-09-11 15:47] MED LIST changes: +LISINOPRIL10 M1 PO; +TRULICITY4.5 MG/0.5 SQ; +VITAMIN D250 MCG PO
[2024-09-11] MEDS ORDERED: methylPREDNISolone sod succ 125 MG VIAL IV ONE (16:10)
[2024-09-11] MEDS ORDERED: Albuterol Sulf/Ipratropium 3 ML VIAL NEB ONE (16:10)
[2024-09-11 16:48] LABS: BASO % 0.2 % (0.0-1.0); EOS % 0.1 % (1.0-4.0); HEMATOCRIT 44.7 % (42.0-52.0); MEAN CELL VOLUME 85.1 fl (80.0-94.0); MEAN CORPUSCULAR HGB CONC 31.8 g/dl (33.0-37.0); MEAN PLATELET VOLUME 9.4 fl (9.6-12.3); MONO # 1.1 10*3/uL (0.1-1.0); MONO % 9.4 % (3.0-9.0); NEUT # 8.5 10*3/uL (2.3-7.9); NEUT % 73.7 % (47.0-73.0); PLATELET COUNT AUTOMATED 217 10*3/uL (130-400); RED BLOOD COUNT 5.25 10*6/uL (4.50-5.90); RED CELL DISTRI WIDTH 12.8 % (0-14.5); WHITE BLOOD COUNT 11.5 10*3/uL (4.8-10.8)
[2024-09-11 17:05] LABS: BUN 33 mg/dl (9-23); CHLORIDE 104 mmol/L (98-107); POTASSIUM 4.1 mmol/L (3.4-5.1)
[2024-09-11] MEDS ORDERED: ALBUTEROL 8 GM INHALER INH ONE (18:20)
== END 2024-09-11 18:26 | disposition home or self-care (01) ==
LOC: ED 15:47
PROVIDERS: Physician Assistant Medical
DX: J18.9 Pneumonia, unspecified organism (principal); E78.5 Hyperlipidemia, unspecified; E11.22 Type 2 diabetes mellitus with diabetic chronic kidney disease; I12.9 Hypertensive chronic kidney disease with stage 1 through stage 4 chronic kidney disease, or unspecified chronic kidney disease; N18.9 Chronic kidney disease, unspecified; J44.9 Chronic obstructive pulmonary disease, unspecified; Z88.0 Allergy status to penicillin; Z98.890 Other specified postprocedural states

== ENCOUNTER 2024-09-23 12:40 | Emergency (ER) | payer OTHER ==
[~2024-09-23] VITALS: Ht 167.6 cm; Wt 97.5 kg
[2024-09-23] MEDS ORDERED: Albuterol Sulfate 2.5 MG/3 ML VIAL NEB ONE (13:25)
[2024-09-23] MEDS ORDERED: MAGNESIUM SULFATE 50 ML IV ONE (13:25)
[2024-09-23] MEDS ORDERED: methylPREDNISolone sod succ 125 MG VIAL IV ONE (13:25)
[2024-09-23 13:40] LABS: BASO % 0.2 % (0.0-1.0); EOS # 0.1 10*3/uL (0.0-0.4); HEMATOCRIT 38.8 % (42.0-52.0); MEAN CELL VOLUME 85.8 fl (80.0-94.0); MEAN CORPUSCULAR HGB 27.2 pg (27.0-31.0); MEAN CORPUSCULAR HGB CONC 31.7 g/dl (33.0-37.0); MEAN PLATELET VOLUME 10.1 fl (9.6-12.3); MONO # 0.6 10*3/uL (0.1-1.0); MONO % 6.2 % (3.0-9.0); NEUT # 7.7 10*3/uL (2.3-7.9); NEUT % 77.5 % (47.0-73.0); PLATELET COUNT AUTOMATED 196 10*3/uL (130-400); RED BLOOD COUNT 4.52 10*6/uL (4.50-5.90); RED CELL DISTRI WIDTH 13.2 % (0-14.5); WHITE BLOOD COUNT 9.9 10*3/uL (4.8-10.8)
[2024-09-23] MEDS ORDERED: Water, Sterile 10 ML VIAL ONE (13:57)
[2024-09-23 14:25] LABS: POTASSIUM 4.8 mmol/L (3.4-5.1)
[2024-09-23] MEDS ORDERED: INSULIN REGULAR, HUMAN 1 UNIT/0.01 ML IV ONE (14:40)
[2024-09-23] MEDS ORDERED: PREDNISONE20 M1 PO (14:53)
== END 2024-09-23 13:30 | disposition home or self-care (01) ==
LOC: ED 12:40
PROVIDERS: Emergency Medicine
DX: J45.901 Unspecified asthma with (acute) exacerbation (principal); J06.9 Acute upper respiratory infection, unspecified; Z88.0 Allergy status to penicillin; Z79.4 Long term (current) use of insulin; Z79.899 Other long term (current) drug therapy; Z98.890 Other specified postprocedural states

== ENCOUNTER → 2024-10-31 | Outpatient (CLI) | payer OTHER | END | disposition home or self-care (01) | LOC: ORTHO 02:49 | PROVIDERS: ATTEND Orthopaedic Surgery | DX: M25.572 Pain in left ankle and joints of left foot (principal); I70.0 Atherosclerosis of aorta ==

== ENCOUNTER → 2024-11-02 | Outpatient (CLI) | payer OTHER | END | disposition home or self-care (01) | LOC: RESCLI 02:01 | PROVIDERS: ATTEND Internal Medicine | DX: J45.909 Unspecified asthma, uncomplicated (principal); I10 Essential (primary) hypertension; E78.5 Hyperlipidemia, unspecified; E11.65 Type 2 diabetes mellitus with hyperglycemia; E55.9 Vitamin D deficiency, unspecified; N52.9 Male erectile dysfunction, unspecified; M25.572 Pain in left ankle and joints of left foot; K21.9 Gastro-esophageal reflux disease without esophagitis; M76.62 Achilles tendinitis, left leg; E11.9 Type 2 diabetes mellitus without complications; S93.432A Sprain of tibiofibular ligament of left ankle, initial encounter; X58.XXXA Exposure to other specified factors, initial encounter; Z79.899 Other long term (current) drug therapy; Z98.890 Other specified postprocedural states; Z88.0 Allergy status to penicillin ==

== ENCOUNTER → 2025-03-06 | Outpatient (CLI) | payer OTHER ==
[2025-03-06 10:47] LABS: VITAMIN D, 25-HYDROXY 32.2 ng/mL (30-100)
[2025-03-06 10:48] LABS: BUN 34.0 mg/dl (9-23); LDL CHOLESTEROL 75.0 mg/dL (9-159)
== END | disposition home or self-care (01) ==
LOC: LAB 07:56 → RESCLI 07:56
PROVIDERS: ATTEND Internal Medicine
DX: E11.65 Type 2 diabetes mellitus with hyperglycemia (principal); E78.5 Hyperlipidemia, unspecified; I12.9 Hypertensive chronic kidney disease with stage 1 through stage 4 chronic kidney disease, or unspecified chronic kidney disease; N18.9 Chronic kidney disease, unspecified; Z09 Encounter for follow-up examination after completed treatment for conditions other than malignant neoplasm; J45.909 Unspecified asthma, uncomplicated

== ENCOUNTER → 2025-04-26 | Outpatient (CLI) | payer OTHER | END | disposition home or self-care (01) | LOC: ORTHO 12:25 | PROVIDERS: ATTEND Orthopaedic Surgery | DX: M25.572 Pain in left ankle and joints of left foot (principal) ==

== ENCOUNTER → 2025-06-12 | Outpatient (CLI) | payer OTHER ==
[2025-06-12 10:11] LABS: BASO # 0.0 10*3/uL (0.0-0.1); BASO % 0.3 % (0.0-1.0); EOS # 0.4 10*3/uL (0.0-0.4); EOS % 5.6 % (1.0-4.0); MEAN CELL VOLUME 88.0 fl (80.0-94.0); MEAN CORPUSCULAR HGB 27.5 pg (27.0-31.0); MEAN PLATELET VOLUME 10.2 fl (9.6-12.3); MONO # 0.7 10*3/uL (0.1-1.0); MONO % 9.5 % (3.0-9.0); NEUT # 4.9 10*3/uL (2.3-7.9); NEUT % 67.2 % (47.0-73.0); NUCLEATED RED BLOOD CELL 0.0 % (0.0-0.0); NUCLEATED RED BLOOD CELL 0.0 10*3/uL (0.0-0.0); PLATELET COUNT AUTOMATED 187 10*3/uL (130-400); RED CELL DISTRI WIDTH 13.4 % (0-14.5)
[2025-06-12 10:37] LABS: BUN 30.0 mg/dl (9-23); LDL CHOLESTEROL 85.0 mg/dL (9-159)
== END | disposition home or self-care (01) ==
LOC: RESCLI 01:19
PROVIDERS: ATTEND Internal Medicine
DX: E11.65 Type 2 diabetes mellitus with hyperglycemia (principal); E78.5 Hyperlipidemia, unspecified; I12.9 Hypertensive chronic kidney disease with stage 1 through stage 4 chronic kidney disease, or unspecified chronic kidney disease; E11.22 Type 2 diabetes mellitus with diabetic chronic kidney disease; N18.9 Chronic kidney disease, unspecified; J45.909 Unspecified asthma, uncomplicated; Z82.49 Family history of ischemic heart disease and other diseases of the circulatory system

== ENCOUNTER → 2025-07-21 | Outpatient (CLI) | payer OTHER | END | disposition home or self-care (01) | LOC: US 07-06 14:00 | PROVIDERS: ATTEND Internal Medicine Nephrology | DX: N28.1 Cyst of kidney, acquired (principal); N18.32 Chronic kidney disease, stage 3b ==